=== PATIENT | male | born 1960 | race Caucasian/White ===

== ENCOUNTER → 2017-03-04 | Outpatient (CLI) | payer OTHER ==
[~2017-03-04] MED LIST: ACCUNEB 0.1.25 MG/1 INH; ALBUTEROL0.09 MG/A2 IH; ALBUTEROL0.09 MG/A2 INH; BLOOD PRESSURE; BUSPAR15 MG PO; BUSPIRONE HCL15 MG PO; CELEXA20 MG PO; CELEXA40 MG PO; CIPRO500 MG PO; CITALOPRAM HYDR40 MG PO; CORBAN MAGNESI400 MG PO; CORDROL20 MG PO; DELTASONE10 MG PO; DIFLUCAN100 MG; DIFLUCAN100 MG PO; FIORICET 325 MG1 TAB PO; FLONASE0.05 MG/AC NS; HYDR12.5C PO; HYDROCODONE BIT1 T11 PO; K-DUR 20MEQ20 MEQ PO; K-DUR20 MEQ PO; KEFLEX500 MG PO; LASIX20 MG PO; LASIX40 MG PO; LEVOFLOXACIN500 MG PO; LISINOPRIL20 MG PO; LORCET PO; MEDROL DOSEPAK4 MG PO; MOTRIN800 MG PO; MULTIPLE VITAMI1 CAP PO; OMEPRAZOLE40 MG PO; OMNICEF300 MG PO; PERCOCET 325 MG1 TA2 PO; PERCOGESIC PO; PHENERGAN W/DM120 ML PO; PREVACID30 MG PO; PRILOSEC20 MG PO; SEPTRA DS 800 M1 TAB PO; TRAZADONE HYDR100 MG PO; TRAZODONE HCL300 MG PO; TUSSI-ORGANIDI480 ML PO; ULTRAM50 MG PO; VIBRAMYCIN100 MG PO; VICODIN 5/500 505 MG PO; VICODIN 500 MG-1 TAB PO; VICODIN ES 7501 TA1 PO; VISTARIL50 MG PO; VITAMIN C500 MG PO; VITAMIN D50000 I1 PO; XANAX0.25 MG PO; XANAX1 MG PO; XANAX2 MG PO; ZITHROMAX Z PA250 MG PO; ZITHROMAX250 MG PO; ZOFRAN ODT8 MG PO; [UNRECOGNIZED DRUG - OTHER]
== END | disposition home or self-care (01) ==
LOC: RESCLI 02:19
DX: M25.511 Pain in right shoulder (principal); K21.9 Gastro-esophageal reflux disease without esophagitis; F32.9 Major depressive disorder, single episode, unspecified; J45.909 Unspecified asthma, uncomplicated; I10 Essential (primary) hypertension; Z88.6 Allergy status to analgesic agent

== ENCOUNTER 2019-08-18 10:07 | Inpatient (IN) | payer OTHER ==
[~2019-08-18] VITALS: Ht 175.2 cm; Wt 89.1 kg
[2019-08-18 10:35] VITALS: BP 138/73
[2019-08-18] MEDS ORDERED: SIMVASTATIN40 MG PO (10:36)
[2019-08-18] MEDS ORDERED: SUBOXONE 8 MG-1 EACH SL (10:37)
[2019-08-18] MEDS ORDERED: GABAPENTIN400 MG PO (10:37)
[2019-08-18] MEDS ORDERED: ZESTORETIC 10-1 EACH PO (10:38)
[2019-08-18] MEDS ORDERED: CETIRIZINE HYDR10 MG PO (10:38)
--- NOTE | 2019-08-18 10:39 | NUR ---
A 59, admitted to , under the services of ZEN Crvaen MD with a diagnosis of SOB, COPD, BRONCHITIS. Chief complaint is SOB, COUGH. Patient arrived via bed from [place]. Monitor applied. Initial assessment completed. Vital signs taken and recorded. ZEN CRAVEN MD notified of admission to the unit. Orders received. See assessment for past medical history, medications and allergies. Patient and/or family oriented to unit. [facility] policy reviewed. Clothing/patient valuable form completed. CHAD PASCUAL
[2019-08-18 10:58] LABS: BASO % 0.5 % (0.0-1.0); EOS # 0.2 10*3/uL (0.0-0.4); HEMATOCRIT 43.3 % (42.0-52.0); HEMOGLOBIN 14.1 g/dl (14.0-18.0); LYMPH # 2.4 10*3/uL (1.3-4.4); LYMPH % 40.3 % (27.0-41.0); MEAN CELL VOLUME 91.4 fl (80.0-94.0); MEAN CORPUSCULAR HGB 29.7 pg (27.0-31.0); MEAN CORPUSCULAR HGB CONC 32.6 g/dl (33.0-37.0); MEAN PLATELET VOLUME 9.4 fl (9.6-12.3); MONO # 0.4 10*3/uL (0.1-1.0); NEUT % 49.9 % (47.0-73.0); PLATELET COUNT AUTOMATED 176 10*3/uL (130-400); RED BLOOD COUNT 4.74 10*6/uL (4.50-5.90); RED CELL DISTRI WIDTH 12.5 % (0-14.5)
[2019-08-18 11:12] LABS: ALBUMIN 3.7 gm/dl (3.1-4.5); ALKALINE PHOSPHATASE 47 U/L (45-117); BUN 12 mg/dl (7-24); CHLORIDE 102 mmol/L (98-107); CREATININE 1.14 mg/dL (0.70-1.30); POTASSIUM 4.2 mmol/L (3.5-5.1); SGOT/AST 15 IU/L (3-35); SGPT/ALT 29 U/L (12-78); SODIUM 134 mmol/L (136-145); TOTAL PROTEIN 8.3 gm/dL (6.4-8.2)
[2019-08-18 12:00] VITALS: BP 110/62
[2019-08-18 16:00] VITALS: BP 115/63
[2019-08-18 20:00] VITALS: BP 119/74
[2019-08-19] VITALS: BP 102/66
[2019-08-19 06:31] LABS: BASO % 0.2 % (0.0-1.0); HEMATOCRIT 41.8 % (42.0-52.0); HEMOGLOBIN 13.6 g/dl (14.0-18.0); LYMPH % 21.3 % (27.0-41.0); MEAN CELL VOLUME 92.5 fl (80.0-94.0); MEAN CORPUSCULAR HGB 30.1 pg (27.0-31.0); MEAN CORPUSCULAR HGB CONC 32.5 g/dl (33.0-37.0); MEAN PLATELET VOLUME 9.9 fl (9.6-12.3); MONO # 0.1 10*3/uL (0.1-1.0); MONO % 1.8 % (3.0-9.0); NEUT # 3.5 10*3/uL (2.3-7.9); NEUT % 76.5 % (47.0-73.0); PLATELET COUNT AUTOMATED 166 10*3/uL (130-400); RED BLOOD COUNT 4.52 10*6/uL (4.50-5.90); RED CELL DISTRI WIDTH 12.5 % (0-14.5); WHITE BLOOD COUNT 4.6 10*3/uL (4.8-10.8)
[2019-08-19 06:56] LABS: BUN 14 mg/dl (7-24); CHLORIDE 103 mmol/L (98-107); CREATININE 1.28 mg/dL (0.70-1.30); PHOSPHOROUS 2.6 mg/dL (2.5-4.9); POTASSIUM 4.7 mmol/L (3.5-5.1); SODIUM 138 mmol/L (136-145)
--- NOTE | 2019-08-19 07:20 | NUR ---
ARRIVED ON SHIFT, INTRODUCED TO PATIENT, NO NEEDS VOICED, WHITE BOARD UPDATED.
[2019-08-19 08:00] VITALS: BP 124/80
--- NOTE | 2019-08-19 09:00 | NUR ---
Surgical Aides Teacher in to talk to patient. Patient states lives at home with his , brother, and children. There are 2 steps in the home. Physician: Dr. Abraham [facility]: [facility] Home health services: none Patient's level of ADLs: INDEPENDENT Patient has working utilities: yes DME: nebulizer Follow-up physician's appointment after d/c: he prefers to make his own follow up appt after discharge Does patient want to access PORTAL?: no Discharge plan discussed with patient. He lives at home with his , brother, and children. He is independent in his ADLs and ambulation. Discussed home health care services and he denies any home needs at this time. When medically stable he will be discharged to home. He states his brother or his will provide transportation on discharge. His only concern with discharge is having more medication prescribed for his nebulizer. Dr. Roche notified. WILL FERRARA
--- NOTE | 2019-08-19 09:42 | NUR ---
Shift chart check completed.
[2019-08-19 12:00] VITALS: BP 127/70
[2019-08-19 16:00] VITALS: BP 105/58
[2019-08-19 20:00] VITALS: BP 113/63
[2019-08-20] VITALS: BP 120/63
--- NOTE | 2019-08-20 02:33 | NUR ---
24 HR chart check completed.
--- NOTE | 2019-08-20 07:15 | NUR ---
ARRIVED ON SHIFT, INTRODUCED TO PATIENT, WHITE BOARD UPDATED, NO NEEDS VOICED AT THIS TIME.
--- NOTE | 2019-08-20 07:40 | NUR ---
Shift chart check completed.
[2019-08-20 08:00] VITALS: BP 127/78
--- NOTE | 2019-08-20 09:00 | NUR ---
Environmental Web Crawler in to see patient. No new needs or request at this time. He denies any home needs. When medically stable he will be discharged to home. Increased solumedrol, on rocephin, zithromax, and tamiflu.
[2019-08-20 12:00] VITALS: BP 125/69
[2019-08-20] MEDS ORDERED: PREDNISONE10 MG PO (13:28)
[2019-08-20] MEDS ORDERED: AVPAK AZITHROM250 M1 PO (13:28)
--- NOTE | 2019-08-20 13:50 | NUR ---
Discharge instructions reviewed with patient/family. Patient receptive and verbalizes understanding. Follow-up care arranged. Written instructions given to patient/family, IV REMOVED, NO TELEMETRY, PATIENT REFUSED WHEELCHAIR FOR DISCHARGE. DANAE WILSON
== END 2019-08-20 13:50 | disposition home or self-care (01) | DRG 140 ==
LOC: 4E 10:07
PROVIDERS: Internal Medicine; ADMIT Internal Medicine
DX: J44.0 Chronic obstructive pulmonary disease with (acute) lower respiratory infection (principal); J12.9 Viral pneumonia, unspecified; J44.1 Chronic obstructive pulmonary disease with (acute) exacerbation; E87.1 Hypo-osmolality and hyponatremia; I10 Essential (primary) hypertension; F32.9 Major depressive disorder, single episode, unspecified; F41.9 Anxiety disorder, unspecified; E87.5 Hyperkalemia; E78.5 Hyperlipidemia, unspecified; Z87.891 Personal history of nicotine dependence; Z82.49 Family history of ischemic heart disease and other diseases of the circulatory system; Z88.6 Allergy status to analgesic agent; Z88.0 Allergy status to penicillin; Z88.8 Allergy status to other drugs, medicaments and biological substances; Z79.899 Other long term (current) drug therapy

== ENCOUNTER → 2020-09-04 | Outpatient (CLI) | payer OTHER ==
[~2020-09-04] MED LIST changes: +AVPAK AZITHROM250 M1 PO; +CETIRIZINE HYDR10 MG PO; +GABAPENTIN400 MG PO; +PREDNISONE10 MG PO; +SIMVASTATIN40 MG PO; +SUBOXONE 8 MG-1 EACH SL; +ZESTORETIC 10-1 EACH PO
[2020-09-04 11:50] LABS: BASO % 0.6 % (0.0-1.0); EOS # 0.1 10*3/uL (0.0-0.4); EOS % 1.5 % (1.0-4.0); HEMATOCRIT 43.6 % (42.0-52.0); LYMPH # 2.1 10*3/uL (1.3-4.4); LYMPH % 39.7 % (27.0-41.0); MEAN CORPUSCULAR HGB CONC 31.9 g/dl (33.0-37.0); MEAN PLATELET VOLUME 9.7 fl (9.6-12.3); MONO # 0.3 10*3/uL (0.1-1.0); MONO % 6.3 % (3.0-9.0); NEUT # 2.8 10*3/uL (2.3-7.9); NEUT % 51.7 % (47.0-73.0); PLATELET COUNT AUTOMATED 161 10*3/uL (130-400); RED BLOOD COUNT 4.79 10*6/uL (4.50-5.90); RED CELL DISTRI WIDTH 12.6 % (0-14.5); WHITE BLOOD COUNT 5.4 10*3/uL (4.8-10.8)
[2020-09-04 12:08] LABS: ALBUMIN 3.6 gm/dl (3.1-4.5); BUN 7 mg/dl (7-24); CHLORIDE 102 mmol/L (98-107); CREATININE 1.07 mg/dL (0.70-1.30); POTASSIUM 4.1 mmol/L (3.5-5.1); SGOT/AST 50 IU/L (3-35); SGPT/ALT 90 U/L (12-78); SODIUM 135 mmol/L (136-145)
[2020-09-04 12:10] LABS: ALKALINE PHOSPHATASE 49 U/L (45-117); TOTAL PROTEIN 7.8 gm/dL (6.4-8.2)
[2020-09-05 05:06] LABS: HEP B CORE AB, IGM Negative (Negative); HEPATITIS B SURFACE AG Negative (Negative)
[2020-09-05 10:50] LABS: HEPATITIS C VIRUS ANTIBODY >11.0 s/co (0.0-0.9)
== END | disposition home or self-care (01) ==
LOC: LAB 11:30
PROVIDERS: ATTEND Nurse Practitioner Psychiatric/Mental Health
DX: Z13.0 Encounter for screening for diseases of the blood and blood-forming organs and certain disorders involving the immune mechanism (principal); F11.20 Opioid dependence, uncomplicated; Z57.8 Occupational exposure to other risk factors

== ENCOUNTER 2021-03-27 21:17 | Inpatient (IN) | payer OTHER ==
[~2021-03-27] VITALS: Ht 175.2 cm; Wt 84.1 kg
[~2021-03-27 21:17] MED LIST changes: +IBU800 MG PO
[2021-03-27 21:27] VITALS: BP 108/66
[2021-03-27 21:50] LABS: BASO % 0.2 % (0.0-1.0); EOS % 0.1 % (1.0-4.0); HEMATOCRIT 42.5 % (42.0-52.0); LYMPH # 1.2 10*3/uL (1.3-4.4); LYMPH % 12.2 % (27.0-41.0); MEAN CELL VOLUME 92.8 fl (80.0-94.0); MEAN CORPUSCULAR HGB 30.3 pg (27.0-31.0); MEAN CORPUSCULAR HGB CONC 32.7 g/dl (33.0-37.0); MEAN PLATELET VOLUME 9.9 fl (9.6-12.3); MONO # 0.6 10*3/uL (0.1-1.0); NEUT # 7.7 10*3/uL (2.3-7.9); NEUT % 81.1 % (47.0-73.0); PLATELET COUNT AUTOMATED 161 10*3/uL (130-400); RED BLOOD COUNT 4.58 10*6/uL (4.50-5.90); RED CELL DISTRI WIDTH 13.1 % (0-14.5); WHITE BLOOD COUNT 9.5 10*3/uL (4.8-10.8)
[2021-03-27 22:08] LABS: ALBUMIN 3.5 gm/dl (3.1-4.5); ALKALINE PHOSPHATASE 52 U/L (45-117); BUN 11 mg/dl (7-24); CHLORIDE 100 mmol/L (98-107); CREATININE 1.05 mg/dL (0.70-1.30); POTASSIUM 3.9 mmol/L (3.5-5.1); SGOT/AST 27 IU/L (3-35); SGPT/ALT 49 U/L (12-78); SODIUM 135 mmol/L (136-145); TOTAL PROTEIN 8.3 gm/dL (6.4-8.2); TROPONIN I < 0.015 ng/ml (<0.045)
[2021-03-28] MEDS ORDERED: MONTELUKAST SOD10 MG PO (00:28)
[2021-03-28] MEDS ORDERED: TAB-A-VITE TA400 MCG PO (00:30)
[2021-03-28] MEDS ORDERED: VITAMIN D350 MCG PO (00:31)
[2021-03-28 02:00] VITALS: BP 100/62
[2021-03-28] MEDS ORDERED: LOSARTAN-HCTZ1 EAC1 PO (02:48)
[2021-03-28 07:12] LABS: BASO % 0.1 % (0.0-1.0); HEMATOCRIT 41.5 % (42.0-52.0); LYMPH # 1.3 10*3/uL (1.3-4.4); LYMPH % 17.3 % (27.0-41.0); MEAN CELL VOLUME 94.7 fl (80.0-94.0); MEAN CORPUSCULAR HGB 30.4 pg (27.0-31.0); MEAN PLATELET VOLUME 10.2 fl (9.6-12.3); MONO # 0.1 10*3/uL (0.1-1.0); MONO % 1.7 % (3.0-9.0); NEUT # 6.2 10*3/uL (2.3-7.9); NEUT % 80.6 % (47.0-73.0); PLATELET COUNT AUTOMATED 142 10*3/uL (130-400); RED BLOOD COUNT 4.38 10*6/uL (4.50-5.90); RED CELL DISTRI WIDTH 13.1 % (0-14.5); WHITE BLOOD COUNT 7.7 10*3/uL (4.8-10.8)
[2021-03-28 07:41] LABS: ALKALINE PHOSPHATASE 49 U/L (45-117); BUN 15 mg/dl (7-24); CHLORIDE 102 mmol/L (98-107); CREATININE 1.16 mg/dL (0.70-1.30); FREE T4 1.23 ng/dl (0.76-1.46); POTASSIUM 4.7 mmol/L (3.5-5.1); SGOT/AST 20 IU/L (3-35); SGPT/ALT 42 U/L (12-78); SODIUM 136 mmol/L (136-145)
[2021-03-28 07:45] LABS: THYROID STIM HORMONE (HS) 0.291 uIU/ml (0.358-4.75)
[2021-03-28 08:00] VITALS: BP 100/68
[2021-03-28] MEDS ORDERED: LOSARTAN POTAS100 MG PO (10:30)
[2021-03-28 12:00] VITALS: BP 134/71
[2021-03-28 16:00] VITALS: BP 122/64
[2021-03-28 20:00] VITALS: BP 114/58
[2021-03-29] VITALS: BP 106/56
[2021-03-29 08:00] VITALS: BP 117/54
[2021-03-29 11:34] VITALS: BP 105/57
[2021-03-29 16:19] LABS: ABG BASE EXCESS 2.4 mmol/L (-2.0-2.0); ARTERIAL BLOOD GAS PH 7.397 (7.35-7.45); ARTERIAL BLOOD GAS PO2 79.9 (80-90)
[2021-03-29 20:00] VITALS: BP 116/72
[2021-03-30] VITALS: BP 114/64
[2021-03-30 06:44] LABS: BASO % 0.1 % (0.0-1.0); HEMATOCRIT 38.8 % (42.0-52.0); LYMPH # 1.5 10*3/uL (1.3-4.4); LYMPH % 15.1 % (27.0-41.0); MEAN CELL VOLUME 96.3 fl (80.0-94.0); MEAN CORPUSCULAR HGB 30.8 pg (27.0-31.0); MEAN PLATELET VOLUME 10.6 fl (9.6-12.3); MONO # 0.4 10*3/uL (0.1-1.0); NEUT # 7.9 10*3/uL (2.3-7.9); NEUT % 80.2 % (47.0-73.0); PLATELET COUNT AUTOMATED 161 10*3/uL (130-400); RED BLOOD COUNT 4.03 10*6/uL (4.50-5.90); RED CELL DISTRI WIDTH 13.1 % (0-14.5); WHITE BLOOD COUNT 9.8 10*3/uL (4.8-10.8)
[2021-03-30 07:03] LABS: ALBUMIN 2.6 gm/dl (3.1-4.5); ALKALINE PHOSPHATASE 51 U/L (45-117); BUN 14 mg/dl (7-24); CHLORIDE 104 mmol/L (98-107); CREATININE 0.89 mg/dL (0.70-1.30); POTASSIUM 4.2 mmol/L (3.5-5.1); SGOT/AST 15 IU/L (3-35); SGPT/ALT 31 U/L (12-78); SODIUM 139 mmol/L (136-145); TOTAL PROTEIN 6.9 gm/dL (6.4-8.2)
[2021-03-30 08:00] VITALS: BP 112/69
[2021-03-30 12:00] VITALS: BP 108/57
[2021-03-30 16:00] VITALS: BP 107/60
[2021-03-30 20:00] VITALS: BP 126/76
[2021-03-31] VITALS: BP 112/69
[2021-03-31 06:13] LABS: BASO % 0.1 % (0.0-1.0); EOS % 0.1 % (1.0-4.0); HEMATOCRIT 38.8 % (42.0-52.0); LYMPH # 1.5 10*3/uL (1.3-4.4); LYMPH % 20.7 % (27.0-41.0); MEAN CORPUSCULAR HGB 30.2 pg (27.0-31.0); MEAN CORPUSCULAR HGB CONC 31.4 g/dl (33.0-37.0); MEAN PLATELET VOLUME 10.4 fl (9.6-12.3); MONO # 0.3 10*3/uL (0.1-1.0); MONO % 4.3 % (3.0-9.0); NEUT # 5.3 10*3/uL (2.3-7.9); NEUT % 73.4 % (47.0-73.0); PLATELET COUNT AUTOMATED 166 10*3/uL (130-400); RED BLOOD COUNT 4.04 10*6/uL (4.50-5.90); WHITE BLOOD COUNT 7.3 10*3/uL (4.8-10.8)
[2021-03-31 06:44] LABS: ALBUMIN 2.8 gm/dl (3.1-4.5); BUN 13 mg/dl (7-24); CHLORIDE 103 mmol/L (98-107); POTASSIUM 4.8 mmol/L (3.5-5.1); SODIUM 138 mmol/L (136-145)
[2021-03-31 06:47] LABS: ALKALINE PHOSPHATASE 50 U/L (45-117); CREATININE 0.85 mg/dL (0.70-1.30); SGOT/AST 14 IU/L (3-35); SGPT/ALT 32 U/L (12-78); TOTAL PROTEIN 6.7 gm/dL (6.4-8.2)
[2021-03-31 08:00] VITALS: BP 116/66
[2021-03-31 12:00] VITALS: BP 121/56
[2021-03-31] MEDS ORDERED: DOXYCYCLINE100 M3 PO (14:42)
[2021-03-31] MEDS ORDERED: SYMB160 INH (14:42)
[2021-03-31] MEDS ORDERED: PREDNISONE10 MG PO (14:42)
== END 2021-03-31 14:27 | disposition left against medical advice (07) | DRG 720 ==
LOC: ED 21:17 → EDHOLD 22:47 → 4E 22:47
PROVIDERS: Internal Medicine; Physician Assistant; Podiatrist Foot & Ankle Surgery; Social Worker Clinical; ADMIT Internal Medicine; ATTEND Internal Medicine
DX: A41.9 Sepsis, unspecified organism (principal); D64.9 Anemia, unspecified; J96.01 Acute respiratory failure with hypoxia; F41.9 Anxiety disorder, unspecified; E78.5 Hyperlipidemia, unspecified; R55 Syncope and collapse; R73.9 Hyperglycemia, unspecified; I10 Essential (primary) hypertension; F32.9 Major depressive disorder, single episode, unspecified; E88.09 Other disorders of plasma-protein metabolism, not elsewhere classified; E07.81 Sick-euthyroid syndrome; E83.39 Other disorders of phosphorus metabolism; F25.9 Schizoaffective disorder, unspecified; Z20.822 Contact with and (suspected) exposure to COVID-19; J20.9 Acute bronchitis, unspecified; J43.9 Emphysema, unspecified; Z53.29 Procedure and treatment not carried out because of patient's decision for other reasons; K21.9 Gastro-esophageal reflux disease without esophagitis; R65.20 Severe sepsis without septic shock; Z88.0 Allergy status to penicillin; Z88.6 Allergy status to analgesic agent; Z88.8 Allergy status to other drugs, medicaments and biological substances; Z87.891 Personal history of nicotine dependence; Z83.3 Family history of diabetes mellitus; Z82.49 Family history of ischemic heart disease and other diseases of the circulatory system; Z80.8 Family history of malignant neoplasm of other organs or systems; Z79.899 Other long term (current) drug therapy; Z80.6 Family history of leukemia; E44.1 Mild protein-calorie malnutrition

== ENCOUNTER → 2024-05-19 | Outpatient (CLI) | payer OTHER ==
[~2024-05-19] MED LIST changes: +DOXYCYCLINE100 M3 PO; +FLUCONAZOLE100 MG PO; +LEVOFLOXACIN750 M2 PO; +LOSARTAN POTAS100 MG PO; +LOSARTAN-HCTZ1 EAC1 PO; +MONTELUKAST SOD10 MG PO; +SYMB160 INH; +TAB-A-VITE TA400 MCG PO; +VITAMIN D350 MCG PO
[2024-05-19 13:41] LABS: BASO % 0.2 % (0.0-1.0); EOS # 0.1 10*3/uL (0.0-0.4); EOS % 0.6 % (1.0-4.0); HEMATOCRIT 46.4 % (42.0-52.0); LYMPH # 2.1 10*3/uL (1.3-4.4); MEAN CELL VOLUME 91.2 fl (80.0-94.0); MEAN CORPUSCULAR HGB 28.9 pg (27.0-31.0); MEAN CORPUSCULAR HGB CONC 31.7 g/dl (33.0-37.0); MEAN PLATELET VOLUME 9.1 fl (9.6-12.3); MONO # 0.4 10*3/uL (0.1-1.0); NEUT # 6.3 10*3/uL (2.3-7.9); NEUT % 70.8 % (47.0-73.0); PLATELET COUNT AUTOMATED 160 10*3/uL (130-400); RED BLOOD COUNT 5.09 10*6/uL (4.50-5.90); RED CELL DISTRI WIDTH 13.7 % (0-14.5); WHITE BLOOD COUNT 8.9 10*3/uL (4.8-10.8)
[2024-05-19 13:53] LABS: BILIRUBIN Negative (Negative); BLOOD Negative (Negative); CLARITY Clear (Clear); COLOR Yellow (Yellow); GLUCOSE Negative (Negative); KETONE Negative (Negative); LEUKO ESTERASE Negative (Negative); NITRITE Negative (Negative); UROBILINOGEN 0.2 E.U./dl (0.0-1.0)
[2024-05-19 14:11] LABS: EPITHELIAL CELLS 0-2; WBC 0-2 wbc/hpf (0-5)
[2024-05-19 14:56] LABS: ALKALINE PHOSPHATASE 45 U/L (46-116); BUN 11 mg/dl (9-23); CHLORIDE 102 mmol/L (98-107); FREE T4 1.05 ng/dl (0.89-1.76); POTASSIUM 3.8 mmol/L (3.4-5.1); SGPT/ALT 12 U/L (5-49); TOTAL PROTEIN 7.1 gm/dL (6.0-8.0)
[2024-05-20 20:08] LABS: HCV RNA (INTERNATION UNIT) 16000000 IU/mL (.); HEPATITIS C QUANTITATION See Final Results IU/mL (.)
[2024-05-21 08:21] LABS: HCV LOG10 7.204 (.)
== END | disposition home or self-care (01) ==
LOC: LAB 13:19 → US 13:30
PROVIDERS: ATTEND Internal Medicine
DX: K76.0 Fatty (change of) liver, not elsewhere classified (principal); R53.83 Other fatigue; R73.9 Hyperglycemia, unspecified; B18.2 Chronic viral hepatitis C

== ENCOUNTER 2024-09-04 09:37 | Inpatient (IN) | payer OTHER ==
[~2024-09-04] VITALS: Ht 175.2 cm; Wt 77.1 kg
[2024-09-04] VITALS (10 sets, daily range): BP systolic 80–115; BP diastolic 53–72
[~2024-09-04 09:37] MED LIST changes: +HYDROXYZINE PAM25 M1 PO
[2024-09-04] MEDS ORDERED: methylPREDNISolone sod succ 125 MG VIAL IV ONE (09:40)
[2024-09-04] MEDS ORDERED: Albuterol Sulfate 2.5 MG/3 ML VIAL NEB ONE (09:40)
[2024-09-04] MEDS ORDERED: SODIUM CHLORIDE 0.9% 1,000 ML IV ONE ×5 (09:40→13:32)
[2024-09-04] MEDS ORDERED: MAGNESIUM SULFATE 50 ML IV ONE (09:40)
[2024-09-04] MEDS ORDERED: AZITHROMYCIN 250 MG TAB PO ONE (09:40)
[2024-09-04 09:51] LABS: BASO % 0.3 % (0.0-1.0); EOS # 0.1 10*3/uL (0.0-0.4); EOS % 0.9 % (1.0-4.0); HEMATOCRIT 46.6 % (42.0-52.0); MEAN CELL VOLUME 90.5 fl (80.0-94.0); MEAN CORPUSCULAR HGB 28.7 pg (27.0-31.0); MEAN CORPUSCULAR HGB CONC 31.8 g/dl (33.0-37.0); MEAN PLATELET VOLUME 9.3 fl (9.6-12.3); MONO # 0.6 10*3/uL (0.1-1.0); MONO % 8.8 % (3.0-9.0); NEUT # 4.5 10*3/uL (2.3-7.9); NEUT % 64.4 % (47.0-73.0); PLATELET COUNT AUTOMATED 183 10*3/uL (130-400); RED BLOOD COUNT 5.15 10*6/uL (4.50-5.90); RED CELL DISTRI WIDTH 13.6 % (0-14.5)
[2024-09-04 10:13] LABS: BUN 18 mg/dl (9-23); CHLORIDE 101 mmol/L (98-107); POTASSIUM 3.5 mmol/L (3.4-5.1)
[2024-09-04] MEDS ORDERED: Diltiazem Hydrochloride 100 ML IV ONE (10:15)
[2024-09-04] MEDS ORDERED: Metoprolol Tartrate 5 MG/5 ML VIAL IV ONE (11:05)
[2024-09-04] MEDS ORDERED: HEPARIN SODIUM 250 ML IV SCH (11:40)
[2024-09-04] MEDS ORDERED: ASPIRIN, CHEWABLE 81 MG TAB PO ONE (11:40)
[2024-09-04 13:59] LABS: BILIRUBIN Negative (Negative); BLOOD Negative (Negative); CLARITY Clear (Clear); COLOR Yellow (Yellow); GLUCOSE Negative (Negative); KETONE Negative (Negative); LEUKO ESTERASE Negative (Negative); NITRITE Negative (Negative); SPECIFIC GRAVITY 1.015 (1.001-1.030); UROBILINOGEN 0.2 E.U./dl (0.0-1.0)
[2024-09-04 14:07] LABS: BACTERIA 1+; WBC 0-2 wbc/hpf (0-5)
[2024-09-04] MEDS ORDERED: Albuterol Sulf/Ipratropium 3 ML VIAL NEB SCH (15:15)
[2024-09-04] MEDS ORDERED: Doxycycline Hyclate 100 MG in SODIUM CHLORIDE 0.9% 250 ML IV SCH (16:00)
[2024-09-04 16:34] LABS: ABG O2 SATURATION 96.7 % (94.0-98.0); ARTERIAL BLOOD GAS PH 7.285 (7.350-7.450); ARTERIAL BLOOD GAS PO2 97.9 mmHg (83.0-108.0)
[2024-09-04 16:35] LABS: ABG BASE EXCESS -5.7 mmol/L (-2.0-3.0)
[2024-09-04] MEDS ORDERED: LORATADINE-D 11 EACH PO (16:54)
[2024-09-04] MEDS ORDERED: PREDNISONE10 MG PO (16:55)
[2024-09-04] MEDS ORDERED: Ceftriaxone Sodium 1 GM in SYRINGE INFUSION 10 ML IV SCH (17:00)
[2024-09-04] MEDS ORDERED: NALOXONE HCL4 M1 INH (17:03)
[2024-09-04] MEDS ORDERED: VENTOLIN 02.5 MG/3 M INH (17:04)
[2024-09-04] MEDS ORDERED: Loratadine/Pseudoephedrine S 1 TAB TAB PO PRN (17:20)
[2024-09-04] MEDS ORDERED: IBUPROFEN 800 MG TAB PO PRN (17:20)
[2024-09-04] MEDS ORDERED: BUPRENORPHINE HCL/NALOXONE 8 MG-2 MG SL TABLET SL SCH (18:00)
[2024-09-04] MEDS ORDERED: SIMVASTATIN 20 MG TAB PO SCH (22:00)
[2024-09-04] MEDS ORDERED: methylPREDNISolone sod succ 125 MG VIAL IV SCH (22:00)
[2024-09-04] MEDS ORDERED: GABAPENTIN 800 MG TAB PO SCH (22:00)
[2024-09-04] MEDS ORDERED: methylPREDNISolone sod succ 40 MG VIAL IV SCH (22:00)
[2024-09-05] VITALS: BP 130/59; BP 97/71
[2024-09-05] MEDS ORDERED: OMEPRAZOLE 20 MG CAP PO SCH (06:00)
[2024-09-05 08:00] VITALS: BP 128/73
[2024-09-05] MEDS ORDERED: Montelukast Sodium 10 MG TAB PO SCH (10:00)
[2024-09-05] MEDS ORDERED: Cholecalciferol 2,000 UNIT TABLET (50 MCG) PO SCH (10:00)
[2024-09-05] MEDS ORDERED: CITALOPRAM 20 MG TAB PO SCH (10:00)
[2024-09-05 12:00] VITALS: BP 127/81
[2024-09-05 13:32] LABS: BASO % 0.1 % (0.0-1.0); MEAN CELL VOLUME 92.4 fl (80.0-94.0); MEAN CORPUSCULAR HGB 28.9 pg (27.0-31.0); MEAN CORPUSCULAR HGB CONC 31.3 g/dl (33.0-37.0); MEAN PLATELET VOLUME 9.4 fl (9.6-12.3); MONO # 0.2 10*3/uL (0.1-1.0); MONO % 2.6 % (3.0-9.0); NEUT # 6.6 10*3/uL (2.3-7.9); NEUT % 87.4 % (47.0-73.0); PLATELET COUNT AUTOMATED 153 10*3/uL (130-400); RED BLOOD COUNT 4.33 10*6/uL (4.50-5.90); RED CELL DISTRI WIDTH 13.5 % (0-14.5); WHITE BLOOD COUNT 7.6 10*3/uL (4.8-10.8)
[2024-09-05 13:53] LABS: ALKALINE PHOSPHATASE 44 U/L (46-116); BUN 13 mg/dl (9-23); CHLORIDE 101 mmol/L (98-107); SGPT/ALT 14 U/L (5-49); TOTAL PROTEIN 6.6 gm/dL (6.0-8.0)
[2024-09-05 16:00] VITALS: BP 102/65
[2024-09-05 20:00] VITALS: BP 111/68
[2024-09-06] VITALS (7 sets, daily range): BP systolic 115–142; BP diastolic 57–94
[2024-09-06] MEDS ORDERED: Diltiazem Hydrochloride 100 ML IV SCH (10:30)
[2024-09-07] VITALS: BP 143/80
[2024-09-07] MEDS ORDERED: FAMOTIDINE 10 MG TAB PO ONE (03:20)
[2024-09-07 08:15] VITALS: BP 143/85
[2024-09-07 12:03] VITALS: BP 140/80
[2024-09-07 16:00] VITALS: BP 152/76
[2024-09-07 20:00] VITALS: BP 132/50; BP 154/91
[2024-09-08] VITALS (15 sets, daily range): BP systolic 116–163; BP diastolic 21–103
[2024-09-08] MEDS ORDERED: Diltiazem Hydrochloride 25 MG/5 ML VIAL IV ONE ×2 (03:55→04:20)
[2024-09-08] MEDS ORDERED: Diltiazem Hydrochloride 5 ML IV ONE (05:05)
[2024-09-08] MEDS ORDERED: RIVAROXABAN 20 MG TAB PO SCH (10:00)
[2024-09-08] MEDS ORDERED: methylPREDNISolone sod succ 40 MG VIAL IV SCH (14:00)
[2024-09-08] MEDS ORDERED: DEXMEDETOMIDINE IN 0.9 % NACL 100 ML IV SCH (15:55)
[2024-09-08 16:24] LABS: ABG O2 SATURATION 95.2 % (94.0-98.0); ARTERIAL BLOOD GAS PH 7.366 (7.350-7.450); ARTERIAL BLOOD GAS PO2 75.9 mmHg (83.0-108.0)
[2024-09-08 16:25] LABS: ABG BASE EXCESS 5.4 mmol/L (-2.0-3.0)
[2024-09-08] MEDS ORDERED: DIGOXIN 500 MCG/2 ML AMP IV ONE ×2 (16:25→22:00)
[2024-09-09] VITALS (12 sets, daily range): BP systolic 101–165; BP diastolic 69–97
[2024-09-09 05:27] LABS: BUN 19 mg/dl (9-23); CHLORIDE 99 mmol/L (98-107); POTASSIUM 4.4 mmol/L (3.4-5.1)
[2024-09-09 06:16] LABS: HEMATOCRIT 40.9 % (42.0-52.0); MEAN CELL VOLUME 94.5 fl (80.0-94.0); MEAN CORPUSCULAR HGB 28.9 pg (27.0-31.0); MEAN CORPUSCULAR HGB CONC 30.6 g/dl (33.0-37.0); MONO # 0.1 10*3/uL (0.1-1.0); MONO % 1.7 % (3.0-9.0); NEUT # 5.9 10*3/uL (2.3-7.9); NEUT % 86.1 % (47.0-73.0); PLATELET COUNT AUTOMATED 170 10*3/uL (130-400); RED BLOOD COUNT 4.33 10*6/uL (4.50-5.90); RED CELL DISTRI WIDTH 13.4 % (0-14.5); WHITE BLOOD COUNT 6.9 10*3/uL (4.8-10.8)
[2024-09-09] MEDS ORDERED: Lidocaine Hydrochloride 4% 5 ML AMP NEB ONE (09:05)
[2024-09-09] MEDS ORDERED: Albuterol Sulfate 2.5 MG/0.5 ML VIAL NEB ONE ×2 (09:05→09:33)
[2024-09-09] MEDS ORDERED: Lidocaine Hydrochloride 4% 5 ML AMP ONE (09:33)
[2024-09-09] MEDS ORDERED: Albuterol Sulf/Ipratropium 3 ML VIAL NEB ONE (09:45)
[2024-09-09] MEDS ORDERED: PROPOFOL 200 MG/20 ML VIAL IV ONE (12:58)
[2024-09-09] MEDS ORDERED: DIGOXIN 125 MCG TAB PO SCH (14:00)
[2024-09-09] MEDS ORDERED: DILTIAZEM CD 120 MG CAP PO SCH (15:45)
[2024-09-10] VITALS (10 sets, daily range): BP systolic 107–134; BP diastolic 59–86
[2024-09-10 09:06] LABS: ACID FAST SPEC PROCESSING Concentration (.)
[2024-09-11] VITALS (8 sets, daily range): BP systolic 103–159; BP diastolic 68–90
[2024-09-11 05:45] LABS: BUN 22 mg/dl (9-23); CHLORIDE 97 mmol/L (98-107); POTASSIUM 4.3 mmol/L (3.4-5.1)
[2024-09-11 06:29] LABS: HEMATOCRIT 44.1 % (42.0-52.0); MEAN CELL VOLUME 95.9 fl (80.0-94.0); MEAN CORPUSCULAR HGB 28.9 pg (27.0-31.0); MEAN CORPUSCULAR HGB CONC 30.2 g/dl (33.0-37.0); MEAN PLATELET VOLUME 9.6 fl (9.6-12.3); PLATELET COUNT AUTOMATED 201 10*3/uL (130-400); RED CELL DISTRI WIDTH 13.7 % (0-14.5); WHITE BLOOD COUNT 8.3 10*3/uL (4.8-10.8)
[2024-09-11 06:37] LABS: MANUAL DIFF REFLEX YES
[2024-09-11 07:22] LABS: PLATELET SUFFICIENCY NORMAL (NORMAL); POLYCHROMASIA SLIGHT; TOTAL CELLS COUNTED 100 #CELLS
[2024-09-11 07:23] LABS: BURR CELLS FEW
[2024-09-11] MEDS ORDERED: GUAIFENESIN 600 MG TAB ER PO SCH (10:00)
[2024-09-11] MEDS ORDERED: Diltiazem Hydrochloride 25 MG/5 ML VIAL IV ONE (17:30)
[2024-09-11] MEDS ORDERED: methylPREDNISolone sod succ 40 MG VIAL IV SCH (22:00)
[2024-09-12] VITALS: BP 157/96
[2024-09-12 04:27] VITALS: BP 148/94
[2024-09-12] MEDS ORDERED: Diltiazem Hydrochloride 25 MG/5 ML VIAL IV ONE (06:55)
[2024-09-12 08:00] VITALS: BP 155/83
[2024-09-12 10:52] LABS: BUN 15 mg/dl (9-23); CHLORIDE 99 mmol/L (98-107); POTASSIUM 4.4 mmol/L (3.4-5.1)
[2024-09-12] MEDS ORDERED: BUPRENORPHINE HCL/NALOXONE 8 MG-2 MG SL TABLET SL SCH (11:15)
[2024-09-12 11:58] VITALS: BP 151/80
[2024-09-12] MEDS ORDERED: Vancomycin Hydrochloride 1,000 MG VIAL IV SCH (15:15)
[2024-09-12 16:00] VITALS: BP 150/87
[2024-09-12] MEDS ORDERED: VANCOMYCIN/WATER FOR INJ (PEG) 300 ML IV SCH (16:00)
[2024-09-12] MEDS ORDERED: LORazepam 1 MG TAB PO ONE (16:55)
[2024-09-12 20:00] VITALS: BP 156/84
[2024-09-12] MEDS ORDERED: LORazepam 0.5 MG TAB PO SCH (22:00)
[2024-09-13] VITALS: BP 140/92
[2024-09-13] MEDS ORDERED: Diltiazem Hydrochloride 25 MG/5 ML VIAL IV ONE (00:20)
[2024-09-13 06:37] LABS: BASO % 0.2 % (0.0-1.0); HEMATOCRIT 42.4 % (42.0-52.0); MEAN CELL VOLUME 95.3 fl (80.0-94.0); MEAN CORPUSCULAR HGB CONC 30.4 g/dl (33.0-37.0); MEAN PLATELET VOLUME 9.6 fl (9.6-12.3); MONO # 0.4 10*3/uL (0.1-1.0); MONO % 3.4 % (3.0-9.0); NEUT # 9.4 10*3/uL (2.3-7.9); NEUT % 86.5 % (47.0-73.0); PLATELET COUNT AUTOMATED 181 10*3/uL (130-400); RED BLOOD COUNT 4.45 10*6/uL (4.50-5.90); RED CELL DISTRI WIDTH 13.6 % (0-14.5); WHITE BLOOD COUNT 10.9 10*3/uL (4.8-10.8)
[2024-09-13 08:00] VITALS: BP 115/91
[2024-09-13] MEDS ORDERED: HYDROCHLOROTHIAZIDE 25 MG TAB PO SCH (10:00)
[2024-09-13] MEDS ORDERED: Losartan Potassium 100 MG TABLET PO SCH (10:00)
[2024-09-13] MEDS ORDERED: DILTIAZEM CD 180 MG CAP PO SCH (10:00)
[2024-09-13] MEDS ORDERED: CARDIZEM CD300 MG PO (12:41)
[2024-09-13] MEDS ORDERED: VIBRA-TAB100 MG PO (12:41)
[2024-09-14] MEDS ORDERED: LIPITOR80 MG PO (15:48)
[2024-09-15] MEDS ORDERED: XARELTO20 M1 PO (21:02)
[2024-09-15] MEDS ORDERED: CARDIZEM LA360 MG PO (21:04)
== END 2024-09-13 09:30 | disposition left against medical advice (07) | DRG 145 ==
LOC: ED 09:37 → EDHOLD 11:46 → 4E 11:46 → ICCU 11:46 → 4E 15:36 → ICCU 09-08 15:53
PROVIDERS: Emergency Medicine; Internal Medicine Critical Care Medicine; ADMIT Internal Medicine; ATTEND Internal Medicine
PROC: 0BC98ZZ Extirpation of Matter from Lingula Bronchus, Via Natural or Artificial Opening Endoscopic (ICD-10-PCS; principal; 2024-09-09)
PROC: 0BC48ZZ Extirpation of Matter from Right Upper Lobe Bronchus, Via Natural or Artificial Opening Endoscopic (ICD-10-PCS; 2024-09-09)
PROC: 0BC88ZZ Extirpation of Matter from Left Upper Lobe Bronchus, Via Natural or Artificial Opening Endoscopic (ICD-10-PCS; 2024-09-09)
PROC: 0BC58ZZ Extirpation of Matter from Right Middle Lobe Bronchus, Via Natural or Artificial Opening Endoscopic (ICD-10-PCS; 2024-09-09)
PROC: 0BC38ZZ Extirpation of Matter from Right Main Bronchus, Via Natural or Artificial Opening Endoscopic (ICD-10-PCS; 2024-09-09)
PROC: 0BC78ZZ Extirpation of Matter from Left Main Bronchus, Via Natural or Artificial Opening Endoscopic (ICD-10-PCS; 2024-09-09)
PROC: 0BC68ZZ Extirpation of Matter from Right Lower Lobe Bronchus, Via Natural or Artificial Opening Endoscopic (ICD-10-PCS; 2024-09-09)
PROC: 0BCB8ZZ Extirpation of Matter from Left Lower Lobe Bronchus, Via Natural or Artificial Opening Endoscopic (ICD-10-PCS; 2024-09-09)
PROC: 0BC28ZZ Extirpation of Matter from Carina, Via Natural or Artificial Opening Endoscopic (ICD-10-PCS; 2024-09-09)
PROC: 5A09357 Assistance with Respiratory Ventilation, Less than 24 Consecutive Hours, Continuous Positive Airway Pressure (ICD-10-PCS; 2024-09-09)
PROC: 0BC18ZZ Extirpation of Matter from Trachea, Via Natural or Artificial Opening Endoscopic (ICD-10-PCS; 2024-09-09)
PROC: 5A09357 Assistance with Respiratory Ventilation, Less than 24 Consecutive Hours, Continuous Positive Airway Pressure (ICD-10-PCS; 2024-09-10)
DX: J20.9 Acute bronchitis, unspecified (principal); J96.21 Acute and chronic respiratory failure with hypoxia; J96.22 Acute and chronic respiratory failure with hypercapnia; T17.590A Other foreign object in bronchus causing asphyxiation, initial encounter; J44.1 Chronic obstructive pulmonary disease with (acute) exacerbation; J44.0 Chronic obstructive pulmonary disease with (acute) lower respiratory infection; I48.0 Paroxysmal atrial fibrillation; F32.9 Major depressive disorder, single episode, unspecified; E78.5 Hyperlipidemia, unspecified; I10 Essential (primary) hypertension; E55.9 Vitamin D deficiency, unspecified; F19.11 Other psychoactive substance abuse, in remission; F41.9 Anxiety disorder, unspecified; B95.62 Methicillin resistant Staphylococcus aureus infection as the cause of diseases classified elsewhere; Z53.29 Procedure and treatment not carried out because of patient's decision for other reasons; Z87.891 Personal history of nicotine dependence; W44.F9XA Other object of natural or organic material, entering into or through a natural orifice, initial encounter; Y93.89 Activity, other specified; Y92.89 Other specified places as the place of occurrence of the external cause; Y99.8 Other external cause status; Z88.0 Allergy status to penicillin; Z88.8 Allergy status to other drugs, medicaments and biological substances; Z82.49 Family history of ischemic heart disease and other diseases of the circulatory system; Z79.51 Long term (current) use of inhaled steroids; Z79.899 Other long term (current) drug therapy

== ENCOUNTER 2024-11-24 16:03 | Inpatient (IN) | payer OTHER ==
[~2024-11-24] VITALS: Ht 175.2 cm; Wt 75.6 kg
[~2024-11-24 16:03] MED LIST changes: +CARDIZEM CD300 MG PO; +CARDIZEM LA360 MG PO; +LIPITOR80 MG PO; +LORATADINE-D 11 EACH PO; +NALOXONE HCL4 M1 INH; +SEPTDS PO; +VENTOLIN 02.5 MG/3 M INH; +VIBRA-TAB100 MG PO; +XARELTO20 M1 PO
[2024-11-24 16:13] VITALS: BP 113/74
[2024-11-24] MEDS ORDERED: Dexamethasone Sodium Phospha 20 MG/5 ML VIAL IV ONE (16:15)
[2024-11-24] MEDS ORDERED: MAGNESIUM SULFATE 50 ML IV ONE (16:15)
[2024-11-24] MEDS ORDERED: Albuterol Sulf/Ipratropium 3 ML VIAL NEB SCH ×2 (16:15→20:30)
[2024-11-24 16:39] LABS: BASO % 0.3 % (0.0-1.0); EOS # 0.1 10*3/uL (0.0-0.4); HEMATOCRIT 42.3 % (42.0-52.0); MEAN CELL VOLUME 89.6 fl (80.0-94.0); MEAN CORPUSCULAR HGB 29.2 pg (27.0-31.0); MEAN CORPUSCULAR HGB CONC 32.6 g/dl (33.0-37.0); MEAN PLATELET VOLUME 9.1 fl (9.6-12.3); MONO # 0.1 10*3/uL (0.1-1.0); MONO % 1.9 % (3.0-9.0); NEUT # 4.6 10*3/uL (2.3-7.9); NEUT % 79.8 % (47.0-73.0); PLATELET COUNT AUTOMATED 149 10*3/uL (130-400); RED BLOOD COUNT 4.72 10*6/uL (4.50-5.90); RED CELL DISTRI WIDTH 13.2 % (0-14.5); WHITE BLOOD COUNT 5.7 10*3/uL (4.8-10.8)
[2024-11-24 16:54] LABS: ACT PARTIAL THROMBO TIME 23.6 SECONDS (20.0-32.1)
[2024-11-24 17:01] LABS: ALKALINE PHOSPHATASE 40 U/L (46-116); BUN 12 mg/dl (9-23); CHLORIDE 99 mmol/L (98-107); LIPASE 32 U/L (12-53); SGPT/ALT 15 U/L (5-49)
[2024-11-24 17:27] LABS: ABG BASE EXCESS -0.1 mmol/L (-2.0-3.0); ABG O2 SATURATION 98.8 % (94.0-98.0); ARTERIAL BLOOD GAS PH 7.389 (7.350-7.450); ARTERIAL BLOOD GAS PO2 161.3 mmHg (83.0-108.0)
[2024-11-24] MEDS ORDERED: SODIUM CHLORIDE 0.9% 100 ML BAG IV ONE (18:00)
[2024-11-24] MEDS ORDERED: IOHEXOL 350 MG/ML 100 ML VIAL IV ONE ×2 (18:00→18:21)
[2024-11-24] MEDS ORDERED: SODIUM CHLORIDE 0.9% 100 ML IV ONE (18:21)
[2024-11-24] MEDS ORDERED: SIMVASTATIN40 MG PO (19:30)
[2024-11-24 19:53] VITALS: BP 97/55
[2024-11-24] MEDS ORDERED: cefTRIAXone Sodium 10 ML IV SCH (21:00)
[2024-11-24] MEDS ORDERED: SODIUM CHLORIDE 0.9% 1,000 ML IV ONE (21:20)
[2024-11-24] MEDS ORDERED: Doxycycline Hyclate 100 MG in SODIUM CHLORIDE 0.9% 250 ML IV SCH (22:00)
[2024-11-24] MEDS ORDERED: BUPRENORPHINE HCL/NALOXONE 8 MG-2 MG SL TABLET SL SCH (22:00)
[2024-11-24] MEDS ORDERED: GABAPENTIN 800 MG TAB PO SCH (22:00)
[2024-11-24 23:14] VITALS: BP 98/57
[2024-11-25 01:09] VITALS: BP 105/65
[2024-11-25 01:27] LABS: BILIRUBIN Negative (Negative); BLOOD Negative (Negative); CLARITY Clear (Clear); COLOR Yellow (Yellow); GLUCOSE Negative (Negative); KETONE Negative (Negative); LEUKO ESTERASE Negative (Negative); NITRITE Negative (Negative); UROBILINOGEN 0.2 E.U./dl (0.0-1.0)
[2024-11-25 01:59] LABS: RBC 0-2 rbc/hpf (0-2); WBC 0-2 wbc/hpf (0-5)
[2024-11-25 02:15] VITALS: BP 106/61
[2024-11-25] MEDS ORDERED: Pantoprazole Sodium 20 MG TAB PO SCH (06:00)
[2024-11-25] MEDS ORDERED: methylPREDNISolone sod succ 40 MG VIAL IV SCH (06:00)
[2024-11-25 06:16] LABS: BASO % 0.1 % (0.0-1.0); HEMATOCRIT 40.7 % (42.0-52.0); MEAN CELL VOLUME 88.7 fl (80.0-94.0); MEAN CORPUSCULAR HGB 28.5 pg (27.0-31.0); MEAN CORPUSCULAR HGB CONC 32.2 g/dl (33.0-37.0); MEAN PLATELET VOLUME 10.1 fl (9.6-12.3); MONO # 0.3 10*3/uL (0.1-1.0); MONO % 3.7 % (3.0-9.0); NEUT # 6.5 10*3/uL (2.3-7.9); NEUT % 78.3 % (47.0-73.0); PLATELET COUNT AUTOMATED 158 10*3/uL (130-400); RED BLOOD COUNT 4.59 10*6/uL (4.50-5.90); RED CELL DISTRI WIDTH 13.1 % (0-14.5); WHITE BLOOD COUNT 8.3 10*3/uL (4.8-10.8)
[2024-11-25 06:32] LABS: ALKALINE PHOSPHATASE 35 U/L (46-116); BUN 12 mg/dl (9-23); CHLORIDE 102 mmol/L (98-107); POTASSIUM 4.2 mmol/L (3.4-5.1); SGPT/ALT 12 U/L (5-49); TOTAL PROTEIN 6.6 gm/dL (6.0-8.0)
[2024-11-25 08:00] VITALS: BP 104/77
[2024-11-25] MEDS ORDERED: CITALOPRAM 20 MG TAB PO SCH (10:00)
[2024-11-25] MEDS ORDERED: Losartan Potassium 50 MG TAB PO SCH (10:00)
[2024-11-25] MEDS ORDERED: Montelukast Sodium 10 MG TAB PO SCH (10:00)
[2024-11-25] MEDS ORDERED: ACETAMINOPHEN 325 MG TAB PO PRN (10:15)
[2024-11-25 12:00] VITALS: BP 104/91
[2024-11-25 15:25] VITALS: BP 118/69
[2024-11-25 20:00] VITALS: BP 104/55
[2024-11-26] VITALS: BP 102/44
[2024-11-26 08:00] VITALS: BP 134/78
[2024-11-26 12:00] VITALS: BP 153/63
[2024-11-26 16:00] VITALS: BP 148/60
[2024-11-26 20:00] VITALS: BP 112/70
[2024-11-26] MEDS ORDERED: GUAIFENESIN 600 MG TAB ER PO SCH (22:00)
[2024-11-27] VITALS: BP 110/71
[2024-11-27] MEDS ORDERED: Water, Sterile 10 ML VIAL ONE (05:40)
[2024-11-27 08:00] VITALS: BP 130/60
[2024-11-27 12:00] VITALS: BP 112/73
[2024-11-27] MEDS ORDERED: dilTIAZem Hydrochloride 25 MG/5 ML VIAL IV ONE ×2 (12:30→13:30)
[2024-11-27] MEDS ORDERED: dilTIAZem CD 240 MG CAP PO SCH (12:43)
[2024-11-27] MEDS ORDERED: CARDIZEM CD360 MG PO (12:47)
[2024-11-27] MEDS ORDERED: XARE20MG PO (12:47)
[2024-11-27] MEDS ORDERED: dilTIAZem Hydrochloride 100 ML IV SCH (14:00)
[2024-11-27 14:15] LABS: BASO % 0.1 % (0.0-1.0); HEMATOCRIT 37.8 % (42.0-52.0); MEAN CELL VOLUME 93.6 fl (80.0-94.0); MEAN PLATELET VOLUME 9.7 fl (9.6-12.3); MONO # 0.4 10*3/uL (0.1-1.0); MONO % 5.3 % (3.0-9.0); NEUT # 6.1 10*3/uL (2.3-7.9); NEUT % 80.1 % (47.0-73.0); PLATELET COUNT AUTOMATED 156 10*3/uL (130-400); RED BLOOD COUNT 4.04 10*6/uL (4.50-5.90); RED CELL DISTRI WIDTH 13.7 % (0-14.5); WHITE BLOOD COUNT 7.7 10*3/uL (4.8-10.8)
[2024-11-27 14:48] LABS: ALKALINE PHOSPHATASE 38 U/L (46-116); BUN 10 mg/dl (9-23); CHLORIDE 106 mmol/L (98-107); POTASSIUM 4.1 mmol/L (3.4-5.1); SGPT/ALT 10 U/L (5-49); TOTAL PROTEIN 6.2 gm/dL (6.0-8.0)
[2024-11-27 16:00] VITALS: BP 103/56
[2024-11-27 20:00] VITALS: BP 112/69
[2024-11-27] MEDS ORDERED: Enoxaparin Sodium 80 MG/0.8 ML SYR SC SCH (22:00)
[2024-11-28] VITALS: BP 106/66
[2024-11-28 05:12] LABS: ALKALINE PHOSPHATASE 37 U/L (46-116); BUN 14 mg/dl (9-23); CHLORIDE 103 mmol/L (98-107); POTASSIUM 4.1 mmol/L (3.4-5.1); SGPT/ALT 12 U/L (5-49); TOTAL PROTEIN 6.6 gm/dL (6.0-8.0)
[2024-11-28 06:17] LABS: BASO % 0.1 % (0.0-1.0); HEMATOCRIT 38.3 % (42.0-52.0); MEAN CELL VOLUME 93.6 fl (80.0-94.0); MEAN CORPUSCULAR HGB 29.1 pg (27.0-31.0); MEAN CORPUSCULAR HGB CONC 31.1 g/dl (33.0-37.0); MONO # 0.4 10*3/uL (0.1-1.0); MONO % 4.7 % (3.0-9.0); NEUT # 6.6 10*3/uL (2.3-7.9); NEUT % 77.9 % (47.0-73.0); PLATELET COUNT AUTOMATED 178 10*3/uL (130-400); RED BLOOD COUNT 4.09 10*6/uL (4.50-5.90); WHITE BLOOD COUNT 8.5 10*3/uL (4.8-10.8)
[2024-11-28 08:00] VITALS: BP 121/72
[2024-11-28] MEDS ORDERED: FUROSEMIDE 40 MG/4 ML VIAL IV SCH (10:00)
[2024-11-28 12:00] VITALS: BP 126/72
[2024-11-28 16:00] VITALS: BP 117/70
[2024-11-28 20:13] VITALS: BP 124/71
[2024-11-29] VITALS: BP 133/70
[2024-11-29] MEDS ORDERED: Lidocaine Hydrochloride 4% 5 ML AMP NEB ONE (06:40)
[2024-11-29] MEDS ORDERED: Albuterol Sulfate 2.5 MG/0.5 ML VIAL NEB ONE ×3 (06:40→08:23)
[2024-11-29 07:00] VITALS: BP 120/74
[2024-11-29] MEDS ORDERED: Lactated Ringer's Solution 500 ML IV ONE (07:07)
[2024-11-29] MEDS ORDERED: Lidocaine Hydrochloride 4% 5 ML AMP ONE ×2 (07:18→08:23)
[2024-11-29] MEDS ORDERED: Albuterol Sulf/Ipratropium 3 ML VIAL NEB ONE ×2 (07:55→08:25)
[2024-11-29 07:58] VITALS: BP 129/71
[2024-11-29 08:13] VITALS: BP 121/73
[2024-11-29 08:28] VITALS: BP 116/70
[2024-11-29 09:40] VITALS: BP 123/70
[2024-11-29] MEDS ORDERED: DOXYCYCLINE HY100 M3 PO (11:50)
[2024-11-29] MEDS ORDERED: CEFUROXIME AXE500 MG PO (12:43)
[2024-11-29] MEDS ORDERED: PROPOFOL 200 MG/20 ML VIAL IV ONE (13:41)
[2024-11-29] MEDS ORDERED: Lidocaine Hydrochloride 2% 5 ML SDV IV ONE (13:41)
[2024-11-30 10:07] LABS: ACID FAST SPEC PROCESSING Concentration (.)
== END 2024-11-29 12:00 | disposition home or self-care (01) | DRG 720 ==
LOC: ED 16:03 → 4E 17:57 → EDHOLD 17:57 → 4E 11-25 00:58
PROVIDERS: Emergency Medicine; Internal Medicine Critical Care Medicine; ADMIT Internal Medicine; ATTEND Internal Medicine
PROC: 0BC98ZZ Extirpation of Matter from Lingula Bronchus, Via Natural or Artificial Opening Endoscopic (ICD-10-PCS; principal; 2024-11-29)
PROC: 0BC48ZZ Extirpation of Matter from Right Upper Lobe Bronchus, Via Natural or Artificial Opening Endoscopic (ICD-10-PCS; 2024-11-29)
PROC: 0BC88ZZ Extirpation of Matter from Left Upper Lobe Bronchus, Via Natural or Artificial Opening Endoscopic (ICD-10-PCS; 2024-11-29)
PROC: 0BC58ZZ Extirpation of Matter from Right Middle Lobe Bronchus, Via Natural or Artificial Opening Endoscopic (ICD-10-PCS; 2024-11-29)
PROC: 0BC38ZZ Extirpation of Matter from Right Main Bronchus, Via Natural or Artificial Opening Endoscopic (ICD-10-PCS; 2024-11-29)
PROC: 0BC78ZZ Extirpation of Matter from Left Main Bronchus, Via Natural or Artificial Opening Endoscopic (ICD-10-PCS; 2024-11-29)
PROC: 0BC68ZZ Extirpation of Matter from Right Lower Lobe Bronchus, Via Natural or Artificial Opening Endoscopic (ICD-10-PCS; 2024-11-29)
PROC: 0BCB8ZZ Extirpation of Matter from Left Lower Lobe Bronchus, Via Natural or Artificial Opening Endoscopic (ICD-10-PCS; 2024-11-29)
PROC: 0BC18ZZ Extirpation of Matter from Trachea, Via Natural or Artificial Opening Endoscopic (ICD-10-PCS; 2024-11-29)
DX: A41.89 Other specified sepsis (principal); J96.01 Acute respiratory failure with hypoxia; I24.89 Other forms of acute ischemic heart disease; E44.1 Mild protein-calorie malnutrition; J44.1 Chronic obstructive pulmonary disease with (acute) exacerbation; F32.9 Major depressive disorder, single episode, unspecified; F41.9 Anxiety disorder, unspecified; J44.0 Chronic obstructive pulmonary disease with (acute) lower respiratory infection; B96.20 Unspecified Escherichia coli [E. coli] as the cause of diseases classified elsewhere; I48.0 Paroxysmal atrial fibrillation; F19.11 Other psychoactive substance abuse, in remission; J20.8 Acute bronchitis due to other specified organisms; E78.5 Hyperlipidemia, unspecified; Z82.49 Family history of ischemic heart disease and other diseases of the circulatory system; Z88.6 Allergy status to analgesic agent; Z79.899 Other long term (current) drug therapy; Z68.24 Body mass index [BMI] 24.0-24.9, adult; Z87.891 Personal history of nicotine dependence

== ENCOUNTER 2024-12-07 16:12 | Inpatient (IN) | payer OTHER ==
[2024-12-07] VITALS (7 sets, daily range): BP systolic 107–148; BP diastolic 64–90
[~2024-12-07] VITALS: Ht 177.8 cm; Wt 80.3 kg
[~2024-12-07 16:12] MED LIST changes: +CARDIZEM CD360 MG PO; +CEFUROXIME AXE500 MG PO; +DOXYCYCLINE HY100 M3 PO; +XARE20MG PO
[2024-12-07] MEDS ORDERED: LORazepam 1 MG TAB PO ONE (16:20)
[2024-12-07] MEDS ORDERED: Albuterol Sulf/Ipratropium 3 ML VIAL NEB ONE (16:20)
[2024-12-07 18:05] LABS: BASO % 0.2 % (0.0-1.0); HEMATOCRIT 36.8 % (42.0-52.0); MEAN CELL VOLUME 90.6 fl (80.0-94.0); MEAN CORPUSCULAR HGB 29.1 pg (27.0-31.0); MEAN CORPUSCULAR HGB CONC 32.1 g/dl (33.0-37.0); MONO # 0.6 10*3/uL (0.1-1.0); MONO % 5.2 % (3.0-9.0); NEUT # 10.6 10*3/uL (2.3-7.9); NEUT % 85.7 % (47.0-73.0); PLATELET COUNT AUTOMATED 162 10*3/uL (130-400); RED BLOOD COUNT 4.06 10*6/uL (4.50-5.90); RED CELL DISTRI WIDTH 13.5 % (0-14.5); WHITE BLOOD COUNT 12.4 10*3/uL (4.8-10.8)
[2024-12-07] MEDS ORDERED: dilTIAZem Hydrochloride 25 MG/5 ML VIAL IV ONE (18:25)
[2024-12-07 18:35] LABS: BILIRUBIN Negative (Negative); BLOOD Negative (Negative); CLARITY Clear (Clear); COLOR Yellow (Yellow); GLUCOSE Negative (Negative); KETONE Negative (Negative); LEUKO ESTERASE Negative (Negative); NITRITE Negative (Negative); UROBILINOGEN 0.2 E.U./dl (0.0-1.0)
[2024-12-07 18:36] LABS: ALKALINE PHOSPHATASE 33 U/L (46-116); BUN 23 mg/dl (9-23); CHLORIDE 97 mmol/L (98-107); POTASSIUM 3.9 mmol/L (3.4-5.1); SGPT/ALT 21 U/L (5-49)
[2024-12-07 18:43] LABS: URINE AMPHETAMINES Negative (1000ng/ml); URINE BARBITURATES Negative (200ng/ml); URINE BENZODIAZEPINES Negative (200ng/ml); URINE CANNABINOIDS (THC) Negative (50ng/ml); URINE COCAINE Negative (300ng/ml); URINE METHADONE Negative (300ng/ml); URINE OPIATES Negative (300ng/ml); URINE PHENCYCLIDINE Negative (25ng/ml)
[2024-12-07 18:46] LABS: BACTERIA TRACE; RBC 0-2 rbc/hpf (0-2); WBC 0-2 wbc/hpf (0-5)
[2024-12-07] MEDS ORDERED: dilTIAZem Hydrochloride 100 ML IV ONE (19:00)
[2024-12-07] MEDS ORDERED: dilTIAZem Hydrochloride 100 ML IV SCH (19:20)
[2024-12-07] MEDS ORDERED: ACETAMINOPHEN 325 MG TAB PO PRN (20:05)
[2024-12-07] MEDS ORDERED: ACETAMINOPHEN 650 MG SUPP R PRN (20:05)
[2024-12-07] MEDS ORDERED: Magnesium Hydroxide 30 ML UDC PO PRN (20:05)
[2024-12-07] MEDS ORDERED: Ondansetron Hydrochloride 4 MG/2 ML VIAL IV PRN (20:05)
[2024-12-07] MEDS ORDERED: BISACODYL 5 MG TAB PO PRN (20:05)
[2024-12-07] MEDS ORDERED: Acetaminophen/Hydrocodone 5 MG/325 MG TABLET PO PRN (20:05)
[2024-12-07] MEDS ORDERED: BISACODYL 10 MG SUPP R PRN (20:05)
[2024-12-07] MEDS ORDERED: LORazepam 1 MG TAB PO PRN (20:25)
[2024-12-07] MEDS ORDERED: cefTRIAXone Sodium 2 GM in SYRINGE INFUSION 20 ML IV SCH (21:00)
[2024-12-07] MEDS ORDERED: BUPRENORPHINE HCL/NALOXONE 8 MG-2 MG SL TABLET SL SCH (22:00)
[2024-12-07] MEDS ORDERED: methylPREDNISolone sod succ 40 MG VIAL IV SCH (22:00)
[2024-12-08] VITALS (12 sets, daily range): BP systolic 107–142; BP diastolic 75–90
[2024-12-08 05:37] LABS: ALKALINE PHOSPHATASE 31 U/L (46-116); BUN 19 mg/dl (9-23); CHLORIDE 99 mmol/L (98-107); SGPT/ALT 22 U/L (5-49); TOTAL PROTEIN 5.6 gm/dL (6.0-8.0)
[2024-12-08 06:26] LABS: BASO % 0.1 % (0.0-1.0); HEMATOCRIT 36.5 % (42.0-52.0); MEAN CELL VOLUME 91.7 fl (80.0-94.0); MEAN CORPUSCULAR HGB 28.6 pg (27.0-31.0); MEAN CORPUSCULAR HGB CONC 31.2 g/dl (33.0-37.0); MEAN PLATELET VOLUME 9.2 fl (9.6-12.3); MONO # 0.3 10*3/uL (0.1-1.0); MONO % 3.7 % (3.0-9.0); NEUT # 6.5 10*3/uL (2.3-7.9); NEUT % 81.9 % (47.0-73.0); PLATELET COUNT AUTOMATED 140 10*3/uL (130-400); RED BLOOD COUNT 3.98 10*6/uL (4.50-5.90); RED CELL DISTRI WIDTH 13.7 % (0-14.5); WHITE BLOOD COUNT 7.9 10*3/uL (4.8-10.8)
[2024-12-08] MEDS ORDERED: RIVAROXABAN 20 MG TAB PO SCH (10:00)
[2024-12-08] MEDS ORDERED: risperiDONE 0.5 MG TAB PO ONE (12:00)
[2024-12-08] MEDS ORDERED: DIGOXIN 500 MCG/2 ML AMP IV ONE (12:00)
[2024-12-08] MEDS ORDERED: DIVALPROEX SODIUM 125 MG CAP PO SCH (14:00)
[2024-12-08 14:11] LABS: ABG BASE EXCESS 0.7 mmol/L (-2.0-3.0); ABG O2 SATURATION 96.3 % (94.0-98.0); ARTERIAL BLOOD GAS PH 7.373 (7.350-7.450); ARTERIAL BLOOD GAS PO2 89.3 mmHg (83.0-108.0)
[2024-12-08] MEDS ORDERED: dilTIAZem CD 180 MG CAP PO SCH (18:25)
[2024-12-08] MEDS ORDERED: GABAPENTIN 800 MG TAB PO SCH (22:00)
[2024-12-09] VITALS (10 sets, daily range): BP systolic 117–140; BP diastolic 71–88
[2024-12-09] MEDS ORDERED: OMEPRAZOLE 20 MG CAP PO SCH (06:00)
[2024-12-09] MEDS ORDERED: CITALOPRAM 20 MG TAB PO SCH (10:00)
[2024-12-09] MEDS ORDERED: Vitamin D 1,000 IU TAB (25 MCG) PO SCH (10:00)
[2024-12-09] MEDS ORDERED: Montelukast Sodium 10 MG TAB PO SCH (10:00)
[2024-12-09] MEDS ORDERED: DIGOXIN 125 MCG TAB PO SCH (14:00)
[2024-12-10] VITALS: BP 130/84
[2024-12-10 04:00] VITALS: BP 134/81
[2024-12-10 08:00] VITALS: BP 138/90
[2024-12-10] MEDS ORDERED: ATORVASTATIN CALCIUM 40 MG TABLET PO SCH (10:00)
[2024-12-10] MEDS ORDERED: FUROSEMIDE 20 MG/2 ML VIAL IV SCH (10:00)
[2024-12-10 16:00] VITALS: BP 138/76
[2024-12-10 20:00] VITALS: BP 138/76
[2024-12-10] MEDS ORDERED: CEFTRIAXONE SODIUM 2 GM IM ONE (21:00)
[2024-12-10] MEDS ORDERED: dilTIAZem Hydrochloride 100 ML IV SCH (23:25)
[2024-12-10] MEDS ORDERED: dilTIAZem Hydrochloride 25 MG/5 ML VIAL IV ONE ×2 (23:25→23:38)
[2024-12-11] VITALS: BP 110/68
[2024-12-11 04:00] VITALS: BP 110/68
[2024-12-11 08:00] VITALS: BP 133/49
[2024-12-11 12:00] VITALS: BP 110/64
[2024-12-11] MEDS ORDERED: LORazepam 2 MG/ML VIAL IV PRN (12:00)
[2024-12-11 14:00] VITALS: BP 107/73
[2024-12-11 20:00] VITALS: BP 122/80
[2024-12-12] VITALS: BP 122/80
[2024-12-12 04:00] VITALS: BP 139/83
[2024-12-12 06:06] LABS: BASO % 0.1 % (0.0-1.0); MEAN CELL VOLUME 93.8 fl (80.0-94.0); MEAN CORPUSCULAR HGB 29.1 pg (27.0-31.0); MEAN PLATELET VOLUME 9.3 fl (9.6-12.3); MONO # 0.3 10*3/uL (0.1-1.0); MONO % 2.7 % (3.0-9.0); NEUT % 83.9 % (47.0-73.0); PLATELET COUNT AUTOMATED 142 10*3/uL (130-400); RED BLOOD COUNT 4.16 10*6/uL (4.50-5.90); RED CELL DISTRI WIDTH 13.6 % (0-14.5); WHITE BLOOD COUNT 9.6 10*3/uL (4.8-10.8)
[2024-12-12 07:20] LABS: ALKALINE PHOSPHATASE 30 U/L (46-116); BUN 21 mg/dl (9-23); CHLORIDE 98 mmol/L (98-107); POTASSIUM 4.5 mmol/L (3.4-5.1); SGPT/ALT 21 U/L (5-49); TOTAL PROTEIN 5.9 gm/dL (6.0-8.0)
[2024-12-12 08:00] VITALS: BP 101/81
[2024-12-12] MEDS ORDERED: methylPREDNISolone sod succ 40 MG VIAL IV SCH (10:00)
[2024-12-12] MEDS ORDERED: ARIPiprazole 2 MG TAB PO SCH (10:00)
[2024-12-12] MEDS ORDERED: ARIPiprazole 5 MG TAB PO SCH ×2 (10:00)
[2024-12-12 12:00] VITALS: BP 127/55
[2024-12-12 16:00] VITALS: BP 118/78
[2024-12-12] MEDS ORDERED: Albuterol Sulf/Ipratropium 3 ML VIAL NEB PRN (21:30)
[2024-12-13] VITALS (9 sets, daily range): BP systolic 99–126; BP diastolic 65–86
[2024-12-13] MEDS ORDERED: Rivastigmine Tartrate 4.6 MG/24 HR PATCH T SCH (10:00)
[2024-12-13] MEDS ORDERED: FUROSEMIDE 40 MG/4 ML VIAL IV SCH (10:00)
[2024-12-13] MEDS ORDERED: GABAPENTIN 800 MG TAB PO SCH (22:00)
[2024-12-13] MEDS ORDERED: Metoprolol Tartrate 5 MG/5 ML VIAL IV ONE (22:10)
[2024-12-13] MEDS ORDERED: SODIUM CHLORIDE 0.9% 500 ML IV ONE (22:10)
[2024-12-13] MEDS ORDERED: DIGOXIN 500 MCG/2 ML AMP IV ONE (22:30)
[2024-12-14 01:30] VITALS: BP 121/86
[2024-12-14 05:56] LABS: ALKALINE PHOSPHATASE 31 U/L (46-116); BUN 20 mg/dl (9-23); CHLORIDE 100 mmol/L (98-107); POTASSIUM 4.4 mmol/L (3.4-5.1); SGPT/ALT 17 U/L (5-49); TOTAL PROTEIN 5.6 gm/dL (6.0-8.0)
[2024-12-14 06:10] LABS: HEMATOCRIT 38.9 % (42.0-52.0); MEAN CORPUSCULAR HGB 29.2 pg (27.0-31.0); MEAN CORPUSCULAR HGB CONC 31.1 g/dl (33.0-37.0); MEAN PLATELET VOLUME 9.6 fl (9.6-12.3); MONO # 0.2 10*3/uL (0.1-1.0); MONO % 2.9 % (3.0-9.0); NEUT # 6.9 10*3/uL (2.3-7.9); NEUT % 87.3 % (47.0-73.0); PLATELET COUNT AUTOMATED 121 10*3/uL (130-400); RED BLOOD COUNT 4.14 10*6/uL (4.50-5.90); RED CELL DISTRI WIDTH 13.4 % (0-14.5); WHITE BLOOD COUNT 7.9 10*3/uL (4.8-10.8)
[2024-12-14 07:55] VITALS: BP 127/75
[2024-12-14 12:00] VITALS: BP 132/80
[2024-12-14] MEDS ORDERED: BARIUM SULFATE 98% 340 GM BOT PO ONE ×2 (12:45→13:11)
[2024-12-14 16:00] VITALS: BP 127/82
[2024-12-14] MEDS ORDERED: AMMONIUM LACTATE 12% LOTION T SCH (22:00)
[2024-12-15] VITALS (7 sets, daily range): BP systolic 100–142; BP diastolic 62–93
[2024-12-15] MEDS ORDERED: Metoprolol Tartrate 5 MG/5 ML VIAL IV ONE (06:30)
[2024-12-15] MEDS ORDERED: DIGOXIN125 MCG PO (08:19)
[2024-12-15] MEDS ORDERED: ARIPIPRAZOLE5 MG PO (08:19)
[2024-12-15] MEDS ORDERED: RIVASTIGMINE1 EAC1 T (08:19)
[2024-12-15] MEDS ORDERED: CITALOPRAM20 MG PO (08:19)
[2024-12-15] MEDS ORDERED: dilTIAZem CD 240 MG CAP PO SCH (10:00)
[2024-12-15] MEDS ORDERED: predniSONE 10 MG TAB PO SCH (10:00)
[2024-12-15] MEDS ORDERED: BUPRENORPHINE HCL/NALOXONE 8 MG-2 MG SL TABLET SL SCH (10:00)
[2024-12-15] MEDS ORDERED: diazePAM 10 MG/2 ML SYR IV ONE (10:40)
[2024-12-15] MEDS ORDERED: ADENOSINE 6 MG/2 ML VIAL IV ONE ×4 (10:50→11:00)
[2024-12-15] MEDS ORDERED: ADENOSINE 12 MG IV ONE (10:55)
[2024-12-15] MEDS ORDERED: DIAZEPAM IV ONE (11:00)
[2024-12-15] MEDS ORDERED: Metoprolol Tartrate 25 MG TAB PO SCH (17:05)
[2024-12-16] VITALS: BP 111/79
[2024-12-16 08:00] VITALS: BP 126/83
[2024-12-16] MEDS ORDERED: Rivastigmine Tartrate 9.5 MG/24 HR PATCH T SCH (10:00)
[2024-12-16] MEDS ORDERED: CITALOPRAM 20 MG TAB PO SCH (10:00)
[2024-12-16 12:00] VITALS: BP 101/77
== END 2024-12-16 14:15 | disposition short-term general hospital (02) | DRG 145 ==
LOC: ED 16:12 → EDHOLD 19:03 → 4E 19:03
PROVIDERS: Counselor Professional; Internal Medicine; Student in an Organized Health Care Education/Training Program; ADMIT Internal Medicine; ATTEND Internal Medicine
PROC: BD12YZZ Fluoroscopy of Stomach using Other Contrast (ICD-10-PCS; principal; 2024-12-14)
DX: J20.8 Acute bronchitis due to other specified organisms (principal); J44.1 Chronic obstructive pulmonary disease with (acute) exacerbation; J96.21 Acute and chronic respiratory failure with hypoxia; E44.1 Mild protein-calorie malnutrition; J44.0 Chronic obstructive pulmonary disease with (acute) lower respiratory infection; I48.91 Unspecified atrial fibrillation; F63.81 Intermittent explosive disorder; I10 Essential (primary) hypertension; E78.5 Hyperlipidemia, unspecified; D72.829 Elevated white blood cell count, unspecified; D64.9 Anemia, unspecified; R73.9 Hyperglycemia, unspecified; K21.9 Gastro-esophageal reflux disease without esophagitis; B96.20 Unspecified Escherichia coli [E. coli] as the cause of diseases classified elsewhere; F79 Unspecified intellectual disabilities; E55.9 Vitamin D deficiency, unspecified; F31.9 Bipolar disorder, unspecified; F41.1 Generalized anxiety disorder; Z88.8 Allergy status to other drugs, medicaments and biological substances; Z79.899 Other long term (current) drug therapy; Z79.01 Long term (current) use of anticoagulants; Z79.2 Long term (current) use of antibiotics; Z87.891 Personal history of nicotine dependence; Z82.49 Family history of ischemic heart disease and other diseases of the circulatory system; Z83.3 Family history of diabetes mellitus; Z80.8 Family history of malignant neoplasm of other organs or systems; Z68.24 Body mass index [BMI] 24.0-24.9, adult

== ENCOUNTER 2024-12-19 10:12 | Inpatient (IN) | payer OTHER ==
[~2024-12-19] VITALS: Ht 175.2 cm; Wt 77.0 kg
[~2024-12-19 10:12] MED LIST changes: +ARIPIPRAZOLE5 MG PO; +CITALOPRAM20 MG PO; +DIGOXIN125 MCG PO; +RIVASTIGMINE1 EAC1 T
[2024-12-19 10:32] VITALS: BP 104/49
[2024-12-19] MEDS ORDERED: PREDNISONE20 M1 PO (12:40)
[2024-12-19] MEDS ORDERED: PANTOPRAZOLE SO40 MG PO (12:41)
[2024-12-19] MEDS ORDERED: VITAMIN D325 MCG PO (12:44)
[2024-12-19] MEDS ORDERED: Ipratropium Brom3 ML INH (12:47)
[2024-12-19] MEDS ORDERED: ATIVAN0.5 MG PO (12:48)
[2024-12-19] MEDS ORDERED: MELATONIN5 M1 PO (12:49)
[2024-12-19] MEDS ORDERED: Ondansetron4 MG IV (12:51)
[2024-12-19] MEDS ORDERED: Ziprasidone Mesylate 20 MG VIAL IM PRN (13:00)
[2024-12-19] MEDS ORDERED: Water, Sterile 10 ML VIAL IM PRN (13:00)
[2024-12-19] MEDS ORDERED: hydrOXYzine hydrochloride 50 MG/ML VIAL IM PRN (13:05)
[2024-12-19] MEDS ORDERED: LORazepam 1 MG TAB PO PRN (13:05)
[2024-12-19] MEDS ORDERED: MG-AL HYDROXIDE/SIMETICONE 30 ML UDC PO PRN (13:05)
[2024-12-19] MEDS ORDERED: ACETAMINOPHEN 325 MG TAB PO PRN (13:05)
[2024-12-19] MEDS ORDERED: Magnesium Hydroxide 30 ML UDC PO PRN (13:05)
[2024-12-19] MEDS ORDERED: Menthol/Zinc Oxide 4 GM THIN T PRN (13:15)
[2024-12-19] MEDS ORDERED: Melatonin 5 MG TABLET PO PRN (18:30)
[2024-12-19] MEDS ORDERED: Albuterol Sulf/Ipratropium 3 ML VIAL NEB SCH (19:02)
[2024-12-19 20:00] VITALS: BP 145/80
[2024-12-19] MEDS ORDERED: SIMVASTATIN 20 MG TAB PO SCH (21:00)
[2024-12-19] MEDS ORDERED: BUPRENORPHINE HCL/NALOXONE 8 MG-2 MG SL TABLET SL SCH (21:00)
[2024-12-19] MEDS ORDERED: GABAPENTIN 800 MG TAB PO SCH (21:00)
[2024-12-20] MEDS ORDERED: OMEPRAZOLE 20 MG CAP PO SCH (06:00)
[2024-12-20 07:22] LABS: ALKALINE PHOSPHATASE 34 U/L (46-116); BUN 12 mg/dl (9-23); CHLORIDE 103 mmol/L (98-107); CHOLESTEROL 147 mg/dL (<200); LDL CHOLESTEROL 84 mg/dL (9-159); POTASSIUM 4.1 mmol/L (3.4-5.1); SGPT/ALT 25 U/L (5-49); TOTAL PROTEIN 6.1 gm/dL (6.0-8.0); TRIGLYCERIDES 121 mg/dl (<150)
[2024-12-20 08:00] VITALS: BP 116/88
[2024-12-20 08:15] LABS: VITAMIN D, 25-HYDROXY 39.6 ng/mL (30-100)
[2024-12-20] MEDS ORDERED: ARIPiprazole 5 MG TAB PO SCH ×2 (09:00→21:00)
[2024-12-20] MEDS ORDERED: Pantoprazole Sodium 40 MG TAB PO SCH (09:00)
[2024-12-20] MEDS ORDERED: predniSONE 10 MG TAB PO SCH (09:00)
[2024-12-20] MEDS ORDERED: Losartan Potassium 50 MG TAB PO SCH (09:00)
[2024-12-20] MEDS ORDERED: RIVAROXABAN 20 MG TAB PO SCH (09:00)
[2024-12-20] MEDS ORDERED: Rivastigmine Tartrate 9.5 MG/24 HR PATCH T SCH (09:00)
[2024-12-20] MEDS ORDERED: hydroCHLOROthiazide 25 MG TAB PO SCH (09:00)
[2024-12-20] MEDS ORDERED: CITALOPRAM 20 MG TAB PO SCH (09:00)
[2024-12-20] MEDS ORDERED: Cholecalciferol 2,000 UNIT TABLET (50 MCG) PO SCH (09:00)
[2024-12-20] MEDS ORDERED: dilTIAZem CD 180 MG CAP PO SCH (09:00)
[2024-12-20] MEDS ORDERED: Montelukast Sodium 10 MG TAB PO SCH (09:00)
[2024-12-20 13:06] LABS: BASO % 0.1 % (0.0-1.0); EOS # 0.1 10*3/uL (0.0-0.4); EOS % 1.2 % (1.0-4.0); HEMATOCRIT 42.1 % (42.0-52.0); MEAN CELL VOLUME 94.4 fl (80.0-94.0); MEAN CORPUSCULAR HGB 29.4 pg (27.0-31.0); MEAN CORPUSCULAR HGB CONC 31.1 g/dl (33.0-37.0); MEAN PLATELET VOLUME 9.2 fl (9.6-12.3); MONO # 0.5 10*3/uL (0.1-1.0); MONO % 7.3 % (3.0-9.0); NEUT # 4.7 10*3/uL (2.3-7.9); NEUT % 64.8 % (47.0-73.0); PLATELET COUNT AUTOMATED 140 10*3/uL (130-400); RED BLOOD COUNT 4.46 10*6/uL (4.50-5.90); RED CELL DISTRI WIDTH 13.5 % (0-14.5); WHITE BLOOD COUNT 7.3 10*3/uL (4.8-10.8)
[2024-12-20 14:11] LABS: BILIRUBIN Negative (Negative); BLOOD Negative (Negative); CLARITY Cloudy (Clear); COLOR Yellow (Yellow); GLUCOSE Negative (Negative); KETONE Negative (Negative); LEUKO ESTERASE Negative (Negative); NITRITE Negative (Negative); PH 8.5 (4.5-8.0); SPECIFIC GRAVITY 1.015 (1.001-1.030)
[2024-12-20 14:25] LABS: BACTERIA TRACE; EPITHELIAL CELLS 0-2; RBC 0-2 rbc/hpf (0-2)
[2024-12-20 20:00] VITALS: BP 100/86
[2024-12-20] MEDS ORDERED: Mirtazapine 15 MG TAB PO SCH (21:00)
[2024-12-21 08:00] VITALS: BP 92/63
[2024-12-21] MEDS ORDERED: MUPIROCIN 15 GM TUBE T SCH (10:00)
[2024-12-21 20:00] VITALS: BP 97/67
[2024-12-22 08:21] VITALS: BP 94/65
[2024-12-22] MEDS ORDERED: HYDR25T PO (08:49)
[2024-12-22] MEDS ORDERED: ABILIFY10 MG PO (10:01)
[2024-12-22] MEDS ORDERED: MELATONIN5 M7 PO (10:01)
[2024-12-22] MEDS ORDERED: MIRTAZAPINE15 M2 PO (10:01)
[2024-12-22] MEDS ORDERED: RIVASTIGMINE1 EAC1 T (10:01)
[2024-12-22] MEDS ORDERED: CIPRO500 MG PO (18:15)
[2024-12-23] MEDS ORDERED: LEVOFLOXACIN500 MG PO (14:46)
== END 2024-12-22 12:19 | disposition home or self-care (01) | DRG 751 ==
LOC: 3N 10:12
PROVIDERS: ADMIT Psychiatry & Neurology Psychiatry; ATTEND Psychiatry & Neurology Psychiatry
PROC: GZHZZZZ Group Psychotherapy (ICD-10-PCS; principal; 2024-12-20)
PROC: GZ51ZZZ Individual Psychotherapy, Behavioral (ICD-10-PCS; 2024-12-20)
DX: F33.2 Major depressive disorder, recurrent severe without psychotic features (principal); I48.92 Unspecified atrial flutter; F63.81 Intermittent explosive disorder; F41.1 Generalized anxiety disorder; J44.9 Chronic obstructive pulmonary disease, unspecified; I48.91 Unspecified atrial fibrillation; J45.909 Unspecified asthma, uncomplicated; I10 Essential (primary) hypertension; G47.00 Insomnia, unspecified; E78.5 Hyperlipidemia, unspecified; Z88.2 Allergy status to sulfonamides; Z88.6 Allergy status to analgesic agent; Z88.0 Allergy status to penicillin; Z88.8 Allergy status to other drugs, medicaments and biological substances; Z87.891 Personal history of nicotine dependence; Z88.5 Allergy status to narcotic agent; Z79.899 Other long term (current) drug therapy

== ENCOUNTER 2024-12-22 15:44 | Emergency (ER) | payer OTHER ==
[~2024-12-22] VITALS: Wt 82.1 kg
[~2024-12-22 15:44] MED LIST changes: +ABILIFY10 MG PO; +ATIVAN0.5 MG PO; +HYDR25T PO; +Ipratropium Brom3 ML INH; +MELATONIN5 M1 PO; +MELATONIN5 M7 PO; +MIRTAZAPINE15 M2 PO; +Ondansetron4 MG IV; +PANTOPRAZOLE SO40 MG PO; +PREDNISONE20 M1 PO; +VITAMIN D325 MCG PO
[2024-12-22 15:50] VITALS: BP 134/64
[2024-12-22 16:33] LABS: EOS # 0.1 10*3/uL (0.0-0.4); EOS % 0.7 % (1.0-4.0); HEMATOCRIT 29.5 % (42.0-52.0); MEAN CELL VOLUME 91.9 fl (80.0-94.0); MEAN CORPUSCULAR HGB 29.3 pg (27.0-31.0); MEAN CORPUSCULAR HGB CONC 31.9 g/dl (33.0-37.0); MEAN PLATELET VOLUME 9.2 fl (9.6-12.3); MONO # 0.5 10*3/uL (0.1-1.0); MONO % 6.3 % (3.0-9.0); NEUT # 6.1 10*3/uL (2.3-7.9); NEUT % 74.6 % (47.0-73.0); PLATELET COUNT AUTOMATED 115 10*3/uL (130-400); RED BLOOD COUNT 3.21 10*6/uL (4.50-5.90); RED CELL DISTRI WIDTH 14.2 % (0-14.5); WHITE BLOOD COUNT 8.1 10*3/uL (4.8-10.8)
[2024-12-22 16:54] LABS: ALKALINE PHOSPHATASE 27 U/L (46-116); BUN 20 mg/dl (9-23); CHLORIDE 99 mmol/L (98-107); POTASSIUM 3.4 mmol/L (3.4-5.1); SGPT/ALT 21 U/L (5-49); TOTAL PROTEIN 5.2 gm/dL (6.0-8.0)
[2024-12-22 16:56] LABS: ETHYL ALCOHOL < 3.0 mg/dl (<3)
[2024-12-22 17:15] LABS: BILIRUBIN 1+ (Negative); BLOOD Negative (Negative); CLARITY Cloudy (Clear); COLOR Dark Yellow (Yellow); GLUCOSE Negative (Negative); KETONE Trace (Negative); LEUKO ESTERASE 1+ (Negative); NITRITE Negative (Negative); PH 5.5 (4.5-8.0); SPECIFIC GRAVITY 1.025 (1.001-1.030)
[2024-12-22 17:22] LABS: URINE AMPHETAMINES Negative (1000ng/ml); URINE BARBITURATES Negative (200ng/ml); URINE BENZODIAZEPINES Negative (200ng/ml); URINE CANNABINOIDS (THC) Negative (50ng/ml); URINE COCAINE Negative (300ng/ml); URINE METHADONE Negative (300ng/ml); URINE OPIATES Negative (300ng/ml); URINE PHENCYCLIDINE Negative (25ng/ml)
[2024-12-22 17:56] LABS: RBC 0-2 rbc/hpf (0-2)
[2024-12-22 17:57] LABS: BACTERIA 2+; MUCOUS 2+
[2024-12-22] MEDS ORDERED: CIPRO500 MG PO (18:15)
[2024-12-22] MEDS ORDERED: MAGNESIUM OXIDE 400 MG TAB PO ONE (18:20)
[2024-12-23] MEDS ORDERED: LEVOFLOXACIN500 MG PO (14:46)
== END 2024-12-22 18:28 | disposition home or self-care (01) ==
LOC: ED 15:44
PROVIDERS: Internal Medicine
DX: N39.0 Urinary tract infection, site not specified (principal); E83.42 Hypomagnesemia; E87.20 Acidosis, unspecified; D64.9 Anemia, unspecified; I10 Essential (primary) hypertension; J44.9 Chronic obstructive pulmonary disease, unspecified; J45.909 Unspecified asthma, uncomplicated; F32.A Depression, unspecified; F41.9 Anxiety disorder, unspecified; Z79.899 Other long term (current) drug therapy; Z88.0 Allergy status to penicillin; Z88.1 Allergy status to other antibiotic agents; Z88.2 Allergy status to sulfonamides; Z88.5 Allergy status to narcotic agent; Z88.6 Allergy status to analgesic agent; Z98.890 Other specified postprocedural states

== ENCOUNTER 2024-12-23 12:20 | Emergency (ER) | payer OTHER ==
[~2024-12-23] VITALS: Wt 75.7 kg
[2024-12-23 12:25] VITALS: BP 159/103
[2024-12-23] MEDS ORDERED: Albuterol Sulf/Ipratropium 3 ML VIAL NEB ONE (12:40)
[2024-12-23 13:01] LABS: BASO % 0.1 % (0.0-1.0); EOS % 0.1 % (1.0-4.0); HEMATOCRIT 28.9 % (42.0-52.0); MEAN CELL VOLUME 92.9 fl (80.0-94.0); MEAN CORPUSCULAR HGB 28.9 pg (27.0-31.0); MEAN CORPUSCULAR HGB CONC 31.1 g/dl (33.0-37.0); MEAN PLATELET VOLUME 9.2 fl (9.6-12.3); MONO # 0.4 10*3/uL (0.1-1.0); MONO % 4.9 % (3.0-9.0); NEUT # 5.9 10*3/uL (2.3-7.9); NEUT % 75.4 % (47.0-73.0); PLATELET COUNT AUTOMATED 120 10*3/uL (130-400); RED BLOOD COUNT 3.11 10*6/uL (4.50-5.90); RED CELL DISTRI WIDTH 14.5 % (0-14.5); WHITE BLOOD COUNT 7.8 10*3/uL (4.8-10.8)
[2024-12-23 13:22] LABS: POTASSIUM 4.1 mmol/L (3.4-5.1)
[2024-12-23] MEDS ORDERED: LEVOFLOXACIN500 MG PO (14:46)
== END 2024-12-23 14:44 | disposition left against medical advice (07) ==
LOC: ED 12:20
PROVIDERS: Emergency Medicine
DX: R06.02 Shortness of breath (principal); J44.9 Chronic obstructive pulmonary disease, unspecified; F32.A Depression, unspecified; Z53.29 Procedure and treatment not carried out because of patient's decision for other reasons; Z88.2 Allergy status to sulfonamides; Z88.6 Allergy status to analgesic agent; Z88.8 Allergy status to other drugs, medicaments and biological substances; Z88.0 Allergy status to penicillin; Z79.899 Other long term (current) drug therapy; Z98.890 Other specified postprocedural states; Z87.891 Personal history of nicotine dependence

== ENCOUNTER 2025-01-17 16:52 | Emergency (ER) | payer OTHER ==
[2025-01-17 17:08] VITALS: BP 123/85
== END 2025-01-17 18:57 | disposition short-term general hospital (02) ==
LOC: ED 16:52
DX: T20.00XA Burn of unspecified degree of head, face, and neck, unspecified site, initial encounter (principal); I10 Essential (primary) hypertension; J45.909 Unspecified asthma, uncomplicated; J44.9 Chronic obstructive pulmonary disease, unspecified; F32.A Depression, unspecified; F41.9 Anxiety disorder, unspecified; Z79.899 Other long term (current) drug therapy; Z88.0 Allergy status to penicillin; Z88.2 Allergy status to sulfonamides; Z88.5 Allergy status to narcotic agent; Z88.6 Allergy status to analgesic agent; Z98.890 Other specified postprocedural states; X15.8XXA Contact with other hot household appliances, initial encounter; Y93.89 Activity, other specified; Y92.89 Other specified places as the place of occurrence of the external cause; Y99.8 Other external cause status

== ENCOUNTER 2025-02-04 10:22 | Observation (INO) | payer OTHER ==
[~2025-02-04] VITALS: Ht 175.2 cm; Wt 72.1 kg
[2025-02-04 10:26] VITALS: BP 144/99
[2025-02-04] MEDS ORDERED: AZITHROMYCIN 250 MG TAB PO ONE (10:45)
[2025-02-04] MEDS ORDERED: methylPREDNISolone sod succ 125 MG VIAL IV ONE (10:45)
[2025-02-04] MEDS ORDERED: Albuterol Sulfate 2.5 MG/3 ML VIAL NEB ONE (10:45)
[2025-02-04] MEDS ORDERED: MAGNESIUM SULFATE 50 ML IV ONE (10:45)
[2025-02-04 10:50] VITALS: BP 144/99
[2025-02-04] MEDS ORDERED: Albuterol Sulf/Ipratropium 3 ML VIAL NEB SCH (13:15)
[2025-02-04 13:18] VITALS: BP 137/85
[2025-02-04] MEDS ORDERED: GABAPENTIN 800 MG TAB PO SCH (14:00)
[2025-02-04 17:57] VITALS: BP 137/87
[2025-02-04 20:00] VITALS: BP 110/77
[2025-02-04] MEDS ORDERED: Mirtazapine 15 MG TAB PO SCH (22:00)
[2025-02-04] MEDS ORDERED: BUPRENORPHINE HCL/NALOXONE 8 MG-2 MG SL TABLET SL SCH (22:00)
[2025-02-05] VITALS: BP 114/78
[2025-02-05] MEDS ORDERED: Pantoprazole Sodium 40 MG TAB PO SCH (06:00)
[2025-02-05 08:00] VITALS: BP 132/80
[2025-02-05] MEDS ORDERED: ARIPiprazole 5 MG TAB PO SCH (10:00)
[2025-02-05] MEDS ORDERED: dilTIAZem CD 180 MG CAP PO SCH (10:00)
[2025-02-05] MEDS ORDERED: Rivastigmine Tartrate 9.5 MG/24 HR PATCH T SCH (10:00)
[2025-02-05] MEDS ORDERED: LEVOFLOXACIN 750 MG TAB PO SCH (10:00)
[2025-02-05] MEDS ORDERED: RIVAROXABAN 20 MG TAB PO SCH (10:00)
[2025-02-05] MEDS ORDERED: BUPRENORPHINE HCL/NALOXONE 8 MG-2 MG SL TABLET SL SCH (10:00)
[2025-02-05] MEDS ORDERED: predniSONE 20 MG TAB PO SCH (10:00)
[2025-02-05] MEDS ORDERED: Losartan Potassium 100 MG TABLET PO SCH (10:00)
[2025-02-05 12:00] VITALS: BP 115/67
[2025-02-05] MEDS ORDERED: Cefuroxime Axetil 250 MG TAB PO SCH (15:45)
[2025-02-05 16:00] VITALS: BP 110/67
[2025-02-05] MEDS ORDERED: LINEZOLID 600 MG TAB PO SCH (18:00)
[2025-02-05 20:00] VITALS: BP 106/62; BP 96/56
[2025-02-06] VITALS: BP 102/65
[2025-02-06 06:26] LABS: BASO % 0.1 % (0.0-1.0); EOS % 0.1 % (1.0-4.0); HEMATOCRIT 37.1 % (42.0-52.0); MEAN CELL VOLUME 90.3 fl (80.0-94.0); MEAN CORPUSCULAR HGB 27.5 pg (27.0-31.0); MEAN CORPUSCULAR HGB CONC 30.5 g/dl (33.0-37.0); MEAN PLATELET VOLUME 10.6 fl (9.6-12.3); MONO # 0.6 10*3/uL (0.1-1.0); NEUT # 8.8 10*3/uL (2.3-7.9); NEUT % 75.5 % (47.0-73.0); PLATELET COUNT AUTOMATED 192 10*3/uL (130-400); RED BLOOD COUNT 4.11 10*6/uL (4.50-5.90); RED CELL DISTRI WIDTH 15.3 % (0-14.5); WHITE BLOOD COUNT 11.7 10*3/uL (4.8-10.8)
[2025-02-06 06:51] LABS: ALKALINE PHOSPHATASE 37 U/L (46-116); BUN 16 mg/dl (9-23); CHLORIDE 98 mmol/L (98-107); SGPT/ALT 11 U/L (5-49); TOTAL PROTEIN 6.3 gm/dL (6.0-8.0)
[2025-02-06 12:00] VITALS: BP 109/59
[2025-02-06] MEDS ORDERED: LINEZOLID600 MG PO (14:02)
[2025-02-06] MEDS ORDERED: CARDIZEM CD180 MG PO (14:02)
[2025-02-06] MEDS ORDERED: CEFUROXIME250 MG PO (14:02)
== END 2025-02-06 14:45 | disposition home or self-care (01) ==
LOC: ED 10:22 → 5E 10:49 → EDHOLD 10:49 → 5E 17:06
PROVIDERS: ADMIT Internal Medicine; ATTEND Internal Medicine
DX: J96.01 Acute respiratory failure with hypoxia (principal); J44.1 Chronic obstructive pulmonary disease with (acute) exacerbation; J96.21 Acute and chronic respiratory failure with hypoxia; E78.5 Hyperlipidemia, unspecified; F32.9 Major depressive disorder, single episode, unspecified; Z79.899 Other long term (current) drug therapy

== ENCOUNTER 2025-03-01 03:31 | Inpatient (IN) | payer OTHER ==
[~2025-03-01] VITALS: Ht 175 cm; Wt 68.7 kg
[~2025-03-01 03:31] MED LIST changes: +CARDIZEM CD180 MG PO; +CEFUROXIME250 MG PO; +LINEZOLID600 MG PO
[2025-03-01 03:39] VITALS: BP 112/55
[2025-03-01 03:58] LABS: BASO # 0.0 10*3/uL (0.0-0.1); BASO % 0.3 % (0.0-1.0); EOS # 0.1 10*3/uL (0.0-0.4); EOS % 2.1 % (1.0-4.0); MEAN CELL VOLUME 92.4 fl (80.0-94.0); MEAN CORPUSCULAR HGB 27.8 pg (27.0-31.0); MEAN PLATELET VOLUME 9.7 fl (9.6-12.3); MONO # 0.5 10*3/uL (0.1-1.0); MONO % 7.7 % (3.0-9.0); NEUT # 4.3 10*3/uL (2.3-7.9); NEUT % 69.1 % (47.0-73.0); NUCLEATED RED BLOOD CELL 0.0 % (0.0-0.0); NUCLEATED RED BLOOD CELL 0.0 10*3/uL (0.0-0.0); PLATELET COUNT AUTOMATED 128 10*3/uL (130-400); RED CELL DISTRI WIDTH 15.6 % (0-14.5)
[2025-03-01 04:31] LABS: BUN 9 mg/dl (9-23); SGPT/ALT 15 U/L (5-49)
[2025-03-01] MEDS ORDERED: ACETAMINOPHEN 325 MG TAB PO PRN (06:35)
[2025-03-01 07:32] VITALS: BP 141/85
[2025-03-01 09:47] VITALS: BP 107/71
[2025-03-01] MEDS ORDERED: ABILIFY5 MG PO (10:27)
[2025-03-01] MEDS ORDERED: CITALOPRAM20 MG PO (10:34)
[2025-03-01] MEDS ORDERED: DIGOXIN125 MCG PO (10:35)
[2025-03-01] MEDS ORDERED: ARIPRAZOLE (10:36)
[2025-03-01] MEDS ORDERED: IBU800 MG PO (10:37)
[2025-03-01] MEDS ORDERED: Albuterol Sulf/Ipratropium 3 ML VIAL NEB PRN (11:25)
[2025-03-01] MEDS ORDERED: IBUPROFEN 800 MG TAB PO PRN (11:30)
[2025-03-01] MEDS ORDERED: Albuterol Sulf/Ipratropium 3 ML VIAL NEB SCH (12:00)
[2025-03-01 13:00] VITALS: BP 118/76
[2025-03-01] MEDS ORDERED: DIGOXIN 125 MCG TAB PO SCH (14:00)
[2025-03-01] MEDS ORDERED: GABAPENTIN 400 MG CAP PO SCH ×2 (14:00→22:00)
[2025-03-01] MEDS ORDERED: DEXTROSE 50% 25 GM/50 ML VIAL IV PRN (14:35)
[2025-03-01 16:00] VITALS: BP 107/64; BP 96/60
[2025-03-01] MEDS ORDERED: INSULIN REGULAR, HUMAN 1 UNIT/0.01 ML SC SCH (16:30)
[2025-03-01] MEDS ORDERED: BUPRENORPHINE HCL/NALOXONE 8 MG-2 MG SL TABLET SL SCH (18:00)
[2025-03-01 20:00] VITALS: BP 112/69
[2025-03-01] MEDS ORDERED: LINEZOLID 600 MG TAB PO SCH (22:00)
[2025-03-01] MEDS ORDERED: Mirtazapine 15 MG TAB PO SCH (22:00)
[2025-03-02] VITALS: BP 125/65
[2025-03-02] MEDS ORDERED: OMEPRAZOLE 20 MG CAP PO SCH (06:00)
[2025-03-02 06:26] LABS: BASO # 0.0 10*3/uL (0.0-0.1); BASO % 0.0 % (0.0-1.0); EOS # 0.0 10*3/uL (0.0-0.4); EOS % 0.2 % (1.0-4.0); MEAN CELL VOLUME 91.7 fl (80.0-94.0); MEAN CORPUSCULAR HGB 27.8 pg (27.0-31.0); MEAN PLATELET VOLUME 10.8 fl (9.6-12.3); MONO # 0.2 10*3/uL (0.1-1.0); MONO % 5.2 % (3.0-9.0); NEUT # 3.1 10*3/uL (2.3-7.9); NEUT % 75.6 % (47.0-73.0); NUCLEATED RED BLOOD CELL 0.0 % (0.0-0.0); NUCLEATED RED BLOOD CELL 0.0 10*3/uL (0.0-0.0); PLATELET COUNT AUTOMATED 134 10*3/uL (130-400); RED CELL DISTRI WIDTH 15.4 % (0-14.5)
[2025-03-02 06:53] LABS: BUN 11 mg/dl (9-23)
[2025-03-02 08:00] VITALS: BP 96/54
[2025-03-02] MEDS ORDERED: ARIPiprazole 5 MG TAB PO SCH (10:00)
[2025-03-02] MEDS ORDERED: Rivastigmine Tartrate 9.5 MG/24 HR PATCH T SCH (10:00)
[2025-03-02] MEDS ORDERED: CITALOPRAM 20 MG TAB PO SCH (10:00)
[2025-03-02] MEDS ORDERED: BUPRENORPHINE HCL/NALOXONE 8 MG-2 MG SL TABLET SL SCH ×2 (10:00→22:00)
[2025-03-02 12:00] VITALS: BP 129/71
[2025-03-02] MEDS ORDERED: Albuterol Sulf/Ipratropium 3 ML VIAL NEB SCH (12:00)
[2025-03-02] MEDS ORDERED: DIGOXIN 125 MCG TAB PO SCH (14:00)
[2025-03-02 16:00] VITALS: BP 119/72
[2025-03-02 16:22] LABS: ABG O2 SATURATION 94.5 % (94.0-98.0); ARTERIAL BLOOD GAS PH 7.411 (7.350-7.450); ARTERIAL BLOOD GAS PO2 74.4 mmHg (83.0-108.0)
[2025-03-02 16:23] LABS: ABG BASE EXCESS 8.9 mmol/L (-2.0-3.0)
[2025-03-02 20:00] VITALS: BP 123/69
[2025-03-03] VITALS: BP 104/66
[2025-03-03 08:00] VITALS: BP 122/71
[2025-03-03 11:46] LABS: BASO # 0.0 10*3/uL (0.0-0.1); BASO % 0.0 % (0.0-1.0); EOS # 0.0 10*3/uL (0.0-0.4); EOS % 0.0 % (1.0-4.0); MEAN CELL VOLUME 93.1 fl (80.0-94.0); MEAN CORPUSCULAR HGB 28.2 pg (27.0-31.0); MEAN PLATELET VOLUME 9.3 fl (9.6-12.3); MONO # 0.7 10*3/uL (0.1-1.0); MONO % 8.2 % (3.0-9.0); NEUT # 6.5 10*3/uL (2.3-7.9); NEUT % 76.7 % (47.0-73.0); NUCLEATED RED BLOOD CELL 0.0 % (0.0-0.0); NUCLEATED RED BLOOD CELL 0.0 10*3/uL (0.0-0.0); PLATELET COUNT AUTOMATED 126 10*3/uL (130-400); RED CELL DISTRI WIDTH 15.9 % (0-14.5)
[2025-03-03 12:00] VITALS: BP 139/72
[2025-03-03 12:12] LABS: BUN 11 mg/dl (9-23)
[2025-03-03] MEDS ORDERED: MEDROL DOSEPAK4 MG PO (12:34)
== END 2025-03-03 14:17 | disposition home or self-care (01) | DRG 145 ==
LOC: ED 03:31 → 4E 06:11 → EDHOLD 06:11 → 4E 12:42
PROVIDERS: Internal Medicine; Internal Medicine Critical Care Medicine; ADMIT Internal Medicine; ATTEND Internal Medicine
PROC: 5A09357 Assistance with Respiratory Ventilation, Less than 24 Consecutive Hours, Continuous Positive Airway Pressure (ICD-10-PCS; principal; 2025-03-01)
PROC: 5A09357 Assistance with Respiratory Ventilation, Less than 24 Consecutive Hours, Continuous Positive Airway Pressure (ICD-10-PCS; 2025-03-02)
PROC: 5A09357 Assistance with Respiratory Ventilation, Less than 24 Consecutive Hours, Continuous Positive Airway Pressure (ICD-10-PCS; 2025-03-03)
DX: J20.9 Acute bronchitis, unspecified (principal); J96.02 Acute respiratory failure with hypercapnia; J96.21 Acute and chronic respiratory failure with hypoxia; E44.1 Mild protein-calorie malnutrition; J44.1 Chronic obstructive pulmonary disease with (acute) exacerbation; I48.92 Unspecified atrial flutter; I48.21 Permanent atrial fibrillation; F29 Unspecified psychosis not due to a substance or known physiological condition; J44.0 Chronic obstructive pulmonary disease with (acute) lower respiratory infection; E87.3 Alkalosis; K21.9 Gastro-esophageal reflux disease without esophagitis; I10 Essential (primary) hypertension; E78.5 Hyperlipidemia, unspecified; F03.93 Unspecified dementia, unspecified severity, with mood disturbance; F03.94 Unspecified dementia, unspecified severity, with anxiety; G47.00 Insomnia, unspecified; D64.9 Anemia, unspecified; E55.9 Vitamin D deficiency, unspecified; E11.9 Type 2 diabetes mellitus without complications; Z82.49 Family history of ischemic heart disease and other diseases of the circulatory system; Z88.0 Allergy status to penicillin; Z88.2 Allergy status to sulfonamides; Z88.8 Allergy status to other drugs, medicaments and biological substances; Z91.09 Other allergy status, other than to drugs and biological substances; Z79.899 Other long term (current) drug therapy; Z79.2 Long term (current) use of antibiotics; Z68.23 Body mass index [BMI] 23.0-23.9, adult; Z91.199 Patient's noncompliance with other medical treatment and regimen due to unspecified reason; Z79.01 Long term (current) use of anticoagulants; Z87.891 Personal history of nicotine dependence; Z80.8 Family history of malignant neoplasm of other organs or systems; Z83.3 Family history of diabetes mellitus

== ENCOUNTER 2025-03-05 06:32 | Inpatient (IN) | payer OTHER ==
[~2025-03-05] VITALS: Ht 170.1 cm; Wt 71.9 kg
[~2025-03-05 06:32] MED LIST changes: +ABILIFY5 MG PO; +ARIPRAZOLE
[2025-03-05 06:47] VITALS: BP 131/77
[2025-03-05] MEDS ORDERED: Albuterol Sulf/Ipratropium 3 ML VIAL NEB ONE (07:20)
[2025-03-05 07:54] LABS: BASO # 0.0 10*3/uL (0.0-0.1); BASO % 0.1 % (0.0-1.0); EOS # 0.0 10*3/uL (0.0-0.4); EOS % 0.3 % (1.0-4.0); MEAN CORPUSCULAR HGB 27.5 pg (27.0-31.0); MEAN PLATELET VOLUME 9.9 fl (9.6-12.3); MONO # 0.5 10*3/uL (0.1-1.0); MONO % 6.2 % (3.0-9.0); NEUT # 5.4 10*3/uL (2.3-7.9); NEUT % 74.0 % (47.0-73.0); NUCLEATED RED BLOOD CELL 0.0 % (0.0-0.0); NUCLEATED RED BLOOD CELL 0.0 10*3/uL (0.0-0.0); PLATELET COUNT AUTOMATED 146 10*3/uL (130-400); RED CELL DISTRI WIDTH 16.1 % (0-14.5)
[2025-03-05 08:03] LABS: MEAN CELL VOLUME 97.2 fl (80.0-94.0)
[2025-03-05 08:08] LABS: ACT PARTIAL THROMBO TIME 20.8 SECONDS (20.0-32.1)
[2025-03-05 08:14] LABS: VENOUS BLOOD GAS O2 SAT 72.8 % (60.0-85.0)
[2025-03-05 08:17] LABS: BUN 21 mg/dl (9-23)
[2025-03-05 08:39] VITALS: BP 102/61
[2025-03-05] MEDS ORDERED: AZITHROMYCIN 250 ML IV ONE (09:35)
[2025-03-05 13:18] VITALS: BP 125/82
[2025-03-05] MEDS ORDERED: Albuterol Sulf/Ipratropium 3 ML VIAL NEB SCH (14:30)
[2025-03-05 15:54] LABS: ABG BASE EXCESS 8.3 mmol/L (-2.0-3.0); ABG O2 SATURATION 96.4 % (94.0-98.0); ARTERIAL BLOOD GAS PH 7.401 (7.350-7.450); ARTERIAL BLOOD GAS PO2 83.7 mmHg (83.0-108.0)
[2025-03-05 16:19] VITALS: BP 129/85
[2025-03-05 17:00] VITALS: BP 156/81
[2025-03-05 20:00] VITALS: BP 152/69
[2025-03-05] MEDS ORDERED: SINGULAIR10 M1 PO (20:09)
[2025-03-05] MEDS ORDERED: REMERON15 M2 PO (20:10)
[2025-03-05] MEDS ORDERED: EXELON1 EAC1 T (20:11)
[2025-03-05] MEDS ORDERED: LOSARTAN POTAS100 M1 PO (20:13)
[2025-03-05] MEDS ORDERED: HYDROCHLOROTHIA25 M1 PO (20:13)
[2025-03-05] MEDS ORDERED: IBUPROFEN 800 MG TAB PO PRN (20:25)
[2025-03-05] MEDS ORDERED: BUDESONIDE 0.5 MG AMP NEB SCH (20:44)
[2025-03-05] MEDS ORDERED: GABAPENTIN 800 MG TAB PO SCH (22:00)
[2025-03-05] MEDS ORDERED: SIMVASTATIN 20 MG TAB PO SCH (22:00)
[2025-03-05] MEDS ORDERED: BUPRENORPHINE HCL/NALOXONE 8 MG-2 MG SL TABLET SL SCH (22:00)
[2025-03-05] MEDS ORDERED: Mirtazapine 15 MG TAB PO SCH (22:00)
[2025-03-06] VITALS: BP 125/73
[2025-03-06] MEDS ORDERED: OMEPRAZOLE 20 MG CAP PO SCH (06:00)
[2025-03-06 06:06] LABS: BASO # 0.0 10*3/uL (0.0-0.1); BASO % 0.0 % (0.0-1.0); EOS # 0.0 10*3/uL (0.0-0.4); EOS % 0.0 % (1.0-4.0); MEAN CORPUSCULAR HGB 27.7 pg (27.0-31.0); MEAN PLATELET VOLUME 10.2 fl (9.6-12.3); MONO # 0.2 10*3/uL (0.1-1.0); MONO % 3.8 % (3.0-9.0); NEUT # 3.7 10*3/uL (2.3-7.9); NEUT % 82.0 % (47.0-73.0); NUCLEATED RED BLOOD CELL 0.0 % (0.0-0.0); NUCLEATED RED BLOOD CELL 0.0 10*3/uL (0.0-0.0); PLATELET COUNT AUTOMATED 142 10*3/uL (130-400); RED CELL DISTRI WIDTH 15.6 % (0-14.5)
[2025-03-06 06:08] LABS: BUN 16 mg/dl (9-23); SGPT/ALT 15 U/L (5-49)
[2025-03-06 06:54] LABS: MEAN CELL VOLUME 93.7 fl (80.0-94.0)
[2025-03-06 08:00] VITALS: BP 146/80
[2025-03-06 08:53] LABS: ABG BASE EXCESS 2.6 mmol/L (-2.0-3.0); ABG O2 SATURATION 98.2 % (94.0-98.0); ARTERIAL BLOOD GAS PH 7.354 (7.350-7.450); ARTERIAL BLOOD GAS PO2 110.5 mmHg (83.0-108.0)
[2025-03-06] MEDS ORDERED: AZITHROMYCIN 250 ML IV SCH (09:00)
[2025-03-06] MEDS ORDERED: Rivastigmine Tartrate 9.5 MG/24 HR PATCH T SCH (10:00)
[2025-03-06] MEDS ORDERED: Cholecalciferol 2,000 UNIT TABLET (50 MCG) PO SCH (10:00)
[2025-03-06] MEDS ORDERED: hydroCHLOROthiazide 25 MG TAB PO SCH (10:00)
[2025-03-06] MEDS ORDERED: RIVAROXABAN 20 MG TAB PO SCH (10:00)
[2025-03-06 12:00] VITALS: BP 121/76
[2025-03-06 16:00] VITALS: BP 117/62
[2025-03-06 20:00] VITALS: BP 107/61
[2025-03-07] VITALS: BP 112/71
[2025-03-07 08:00] VITALS: BP 122/75
[2025-03-07 12:00] VITALS: BP 109/75
[2025-03-07 16:00] VITALS: BP 123/75
[2025-03-07 20:00] VITALS: BP 116/66
[2025-03-08] VITALS: BP 134/90
[2025-03-08 06:42] LABS: BASO # 0.0 10*3/uL (0.0-0.1); BASO % 0.0 % (0.0-1.0); EOS # 0.0 10*3/uL (0.0-0.4); EOS % 0.0 % (1.0-4.0); MEAN CELL VOLUME 94.3 fl (80.0-94.0); MEAN CORPUSCULAR HGB 27.9 pg (27.0-31.0); MEAN PLATELET VOLUME 9.8 fl (9.6-12.3); MONO # 0.4 10*3/uL (0.1-1.0); MONO % 5.8 % (3.0-9.0); NEUT # 5.6 10*3/uL (2.3-7.9); NEUT % 83.0 % (47.0-73.0); NUCLEATED RED BLOOD CELL 0.0 % (0.0-0.0); NUCLEATED RED BLOOD CELL 0.0 10*3/uL (0.0-0.0); PLATELET COUNT AUTOMATED 166 10*3/uL (130-400); RED CELL DISTRI WIDTH 15.8 % (0-14.5)
[2025-03-08 07:09] LABS: BUN 13 mg/dl (9-23); SGPT/ALT 22 U/L (5-49)
[2025-03-08 07:35] LABS: ABG O2 SATURATION 98.7 % (94.0-98.0); ARTERIAL BLOOD GAS PH 7.398 (7.350-7.450); ARTERIAL BLOOD GAS PO2 129.0 mmHg (83.0-108.0)
[2025-03-08 07:40] LABS: ABG BASE EXCESS 8.0 mmol/L (-2.0-3.0)
[2025-03-08 08:00] VITALS: BP 118/76
[2025-03-08 12:00] VITALS: BP 93/72
[2025-03-08 16:00] VITALS: BP 101/60
== END 2025-03-08 19:50 | disposition left against medical advice (07) | DRG 189 ==
LOC: ED 06:32 → 4E 10:26 → EDHOLD 10:26 → 4E 15:43
PROVIDERS: Internal Medicine; ADMIT Internal Medicine; ATTEND Internal Medicine
DX: J96.21 Acute and chronic respiratory failure with hypoxia (principal); J18.9 Pneumonia, unspecified organism; J44.1 Chronic obstructive pulmonary disease with (acute) exacerbation; J44.0 Chronic obstructive pulmonary disease with (acute) lower respiratory infection; I48.92 Unspecified atrial flutter; F32.9 Major depressive disorder, single episode, unspecified; J96.22 Acute and chronic respiratory failure with hypercapnia; D53.9 Nutritional anemia, unspecified; F41.9 Anxiety disorder, unspecified; I48.91 Unspecified atrial fibrillation; K21.9 Gastro-esophageal reflux disease without esophagitis; F63.81 Intermittent explosive disorder; I10 Essential (primary) hypertension; F19.11 Other psychoactive substance abuse, in remission; E55.9 Vitamin D deficiency, unspecified; K76.0 Fatty (change of) liver, not elsewhere classified; F51.01 Primary insomnia; E78.5 Hyperlipidemia, unspecified; F03.90 Unspecified dementia, unspecified severity, without behavioral disturbance, psychotic disturbance, mood disturbance, and anxiety; Z53.29 Procedure and treatment not carried out because of patient's decision for other reasons; Z88.2 Allergy status to sulfonamides; Z88.8 Allergy status to other drugs, medicaments and biological substances; Z91.09 Other allergy status, other than to drugs and biological substances; Z79.899 Other long term (current) drug therapy; Z79.01 Long term (current) use of anticoagulants; Z79.2 Long term (current) use of antibiotics; Z95.0 Presence of cardiac pacemaker; Z87.891 Personal history of nicotine dependence; Z87.440 Personal history of urinary (tract) infections; Z82.49 Family history of ischemic heart disease and other diseases of the circulatory system; Z83.3 Family history of diabetes mellitus; Z80.8 Family history of malignant neoplasm of other organs or systems

== ENCOUNTER 2025-03-22 12:48 | Emergency (ER) | payer OTHER ==
[~2025-03-22] VITALS: Ht 175.2 cm; Wt 78.0 kg
[~2025-03-22 12:48] MED LIST changes: +EXELON1 EAC1 T; +HYDROCHLOROTHIA25 M1 PO; +LOSARTAN POTAS100 M1 PO; +REMERON15 M2 PO; +SINGULAIR10 M1 PO
[2025-03-22 12:53] VITALS: BP 102/69
[2025-03-22] MEDS ORDERED: SODIUM CHLORIDE 0.9% 1,000 ML IV ONE (13:50)
== END 2025-03-22 14:37 | disposition short-term general hospital (02) ==
LOC: ED 12:48
DX: T20.20XA Burn of second degree of head, face, and neck, unspecified site, initial encounter (principal); T20.24XA Burn of second degree of nose (septum), initial encounter; T20.22XA Burn of second degree of lip(s), initial encounter; T23.102A Burn of first degree of left hand, unspecified site, initial encounter; T23.101A Burn of first degree of right hand, unspecified site, initial encounter; J44.9 Chronic obstructive pulmonary disease, unspecified; I48.91 Unspecified atrial fibrillation; X08.8XXA Exposure to other specified smoke, fire and flames, initial encounter; Y93.89 Activity, other specified; Y92.89 Other specified places as the place of occurrence of the external cause; Y99.8 Other external cause status

== ENCOUNTER 2025-04-14 19:30 | Inpatient (IN) | payer OTHER ==
[~2025-04-14] VITALS: Ht 175.2 cm; Wt 68.9 kg
[2025-04-14 19:40] VITALS: BP 104/66
[2025-04-14 19:57] LABS: BASO # 0.0 10*3/uL (0.0-0.1); BASO % 0.4 % (0.0-1.0); EOS # 0.1 10*3/uL (0.0-0.4); EOS % 1.3 % (1.0-4.0); MEAN CELL VOLUME 87.8 fl (80.0-94.0); MEAN CORPUSCULAR HGB 27.2 pg (27.0-31.0); MEAN PLATELET VOLUME 10.0 fl (9.6-12.3); MONO # 0.3 10*3/uL (0.1-1.0); MONO % 4.1 % (3.0-9.0); NEUT # 6.2 10*3/uL (2.3-7.9); NEUT % 77.0 % (47.0-73.0); NUCLEATED RED BLOOD CELL 0.0 % (0.0-0.0); NUCLEATED RED BLOOD CELL 0.0 10*3/uL (0.0-0.0); PLATELET COUNT AUTOMATED 170 10*3/uL (130-400); RED CELL DISTRI WIDTH 14.6 % (0-14.5)
[2025-04-14 20:29] LABS: BUN 15 mg/dl (9-23)
[2025-04-14] MEDS ORDERED: MAGNESIUM SULFATE 100 ML IV ONE (20:55)
[2025-04-14] MEDS ORDERED: POTASSIUM CHLORIDE 20 MEQ TAB PO ONE (20:55)
[2025-04-14] MEDS ORDERED: Albuterol Sulf/Ipratropium 3 ML VIAL NEB ONE (22:20)
[2025-04-14 22:33] VITALS: BP 98/69
[2025-04-15] VITALS (8 sets, daily range): BP systolic 95–118; BP diastolic 61–81
[2025-04-15] MEDS ORDERED: GABAPENTIN800 MG PO (00:12)
[2025-04-15] MEDS ORDERED: METHYLPRED-DP4 MG PO (00:13)
[2025-04-15] MEDS ORDERED: BUPRENORPHINE-1 EAC1 SL (00:13)
[2025-04-15] MEDS ORDERED: MUCUS RELIEF600 MG PO (00:13)
[2025-04-15] MEDS ORDERED: ADVAIR 250/501 EA INH (00:14)
[2025-04-15] MEDS ORDERED: ALBUTEROL SULFATE HF INH (00:14)
[2025-04-15] MEDS ORDERED: ARIPIPRAZOLE10 MG PO (00:15)
[2025-04-15] MEDS ORDERED: ATORVASTATIN CA20 M1 PO (00:16)
[2025-04-15] MEDS ORDERED: CITALOPRAM40 MG PO (00:16)
[2025-04-15] MEDS ORDERED: MELATONIN5 M7 PO (00:17)
[2025-04-15] MEDS ORDERED: RIVASTIGMINE1 EAC1 TD (00:17)
[2025-04-15] MEDS ORDERED: TRELEGY ELLIPT1 EACH INH (00:18)
[2025-04-15] MEDS ORDERED: IBU800 M1 PO (00:19)
[2025-04-15] MEDS ORDERED: 24 HOUR ALLERG9.9 ML NAS (00:20)
[2025-04-15] MEDS ORDERED: Albuterol Sulf/Ipratropium 3 ML VIAL NEB SCH (05:10)
[2025-04-15] MEDS ORDERED: ACETAMINOPHEN 325 MG TAB PO PRN (05:10)
[2025-04-15] MEDS ORDERED: BISACODYL 5 MG TAB PO PRN (05:10)
[2025-04-15] MEDS ORDERED: ACETAMINOPHEN 650 MG SUPP R PRN (05:10)
[2025-04-15] MEDS ORDERED: BISACODYL 10 MG SUPP R PRN (05:10)
[2025-04-15] MEDS ORDERED: Ondansetron Hydrochloride 4 MG/2 ML VIAL IV PRN (05:10)
[2025-04-15] MEDS ORDERED: Acetaminophen/Hydrocodone 5 MG/325 MG TABLET PO PRN (05:10)
[2025-04-15 06:03] LABS: MEAN CELL VOLUME 88.9 fl (80.0-94.0); MEAN CORPUSCULAR HGB 27.3 pg (27.0-31.0); MEAN PLATELET VOLUME 10.3 fl (9.6-12.3); NUCLEATED RED BLOOD CELL 0.0 % (0.0-0.0); NUCLEATED RED BLOOD CELL 0.0 10*3/uL (0.0-0.0); PLATELET COUNT AUTOMATED 155 10*3/uL (130-400); RED CELL DISTRI WIDTH 14.6 % (0-14.5)
[2025-04-15 06:06] LABS: MANUAL DIFF REFLEX YES
[2025-04-15 06:46] LABS: BUN 13 mg/dl (9-23); SGPT/ALT 28 U/L (5-49)
[2025-04-15 07:32] LABS: PLATELET SUFFICIENCY NORMAL (NORMAL)
[2025-04-15] MEDS ORDERED: CITALOPRAM 20 MG TAB PO SCH (10:00)
[2025-04-15] MEDS ORDERED: GUAIFENESIN 600 MG TAB ER PO SCH (10:00)
[2025-04-15] MEDS ORDERED: Cholecalciferol 2,000 UNIT TABLET (50 MCG) PO SCH (10:00)
[2025-04-15] MEDS ORDERED: BUPRENORPHINE HCL/NALOXONE 8 MG-2 MG SL TABLET SL SCH (10:00)
[2025-04-15] MEDS ORDERED: Rivastigmine Tartrate 9.5 MG/24 HR PATCH T SCH (10:00)
[2025-04-15] MEDS ORDERED: ARIPiprazole 5 MG TAB PO SCH (10:00)
[2025-04-15] MEDS ORDERED: RIVAROXABAN 20 MG TAB PO SCH (10:00)
[2025-04-15] MEDS ORDERED: GABAPENTIN 800 MG TAB PO SCH (14:00)
[2025-04-15] MEDS ORDERED: ATORVASTATIN CALCIUM 20 MG TAB PO SCH (22:00)
[2025-04-16] VITALS: BP 106/53
[2025-04-16 05:33] LABS: BUN 18 mg/dl (9-23); SGPT/ALT 22 U/L (5-49)
[2025-04-16] MEDS ORDERED: OMEPRAZOLE 20 MG CAP PO SCH (06:00)
[2025-04-16 06:02] LABS: BASO # 0.0 10*3/uL (0.0-0.1); BASO % 0.1 % (0.0-1.0); EOS # 0.0 10*3/uL (0.0-0.4); EOS % 0.0 % (1.0-4.0); MEAN CELL VOLUME 89.7 fl (80.0-94.0); MEAN CORPUSCULAR HGB 27.4 pg (27.0-31.0); MEAN PLATELET VOLUME 10.6 fl (9.6-12.3); MONO # 0.5 10*3/uL (0.1-1.0); MONO % 5.1 % (3.0-9.0); NEUT # 8.4 10*3/uL (2.3-7.9); NEUT % 84.8 % (47.0-73.0); NUCLEATED RED BLOOD CELL 0.0 % (0.0-0.0); NUCLEATED RED BLOOD CELL 0.0 10*3/uL (0.0-0.0); PLATELET COUNT AUTOMATED 178 10*3/uL (130-400); RED CELL DISTRI WIDTH 14.7 % (0-14.5)
[2025-04-16 08:00] VITALS: BP 102/69
[2025-04-16 12:00] VITALS: BP 116/68
[2025-04-16] MEDS ORDERED: FUROSEMIDE 40 MG/4 ML VIAL IV SCH (13:05)
[2025-04-16 16:00] VITALS: BP 115/71
[2025-04-16 20:00] VITALS: BP 110/89; BP 112/79
[2025-04-17] VITALS: BP 102/60; BP 130/68; BP 92/51
[2025-04-17 06:05] LABS: BUN 17 mg/dl (9-23)
[2025-04-17 06:13] LABS: BASO # 0.0 10*3/uL (0.0-0.1); BASO % 0.0 % (0.0-1.0); EOS # 0.0 10*3/uL (0.0-0.4); EOS % 0.0 % (1.0-4.0); MEAN CELL VOLUME 91.1 fl (80.0-94.0); MEAN CORPUSCULAR HGB 27.4 pg (27.0-31.0); MEAN PLATELET VOLUME 10.2 fl (9.6-12.3); MONO # 0.6 10*3/uL (0.1-1.0); MONO % 6.3 % (3.0-9.0); NEUT # 7.7 10*3/uL (2.3-7.9); NEUT % 83.3 % (47.0-73.0); NUCLEATED RED BLOOD CELL 0.0 % (0.0-0.0); NUCLEATED RED BLOOD CELL 0.0 10*3/uL (0.0-0.0); PLATELET COUNT AUTOMATED 212 10*3/uL (130-400); RED CELL DISTRI WIDTH 14.6 % (0-14.5)
[2025-04-17 08:00] VITALS: BP 113/73
[2025-04-17] MEDS ORDERED: FUROSEMIDE 40 MG/4 ML VIAL IV SCH (10:00)
[2025-04-17 12:00] VITALS: BP 119/93
[2025-04-17] MEDS ORDERED: CROMOLYN SODIUM NAS PRN (14:25)
[2025-04-17 16:00] VITALS: BP 103/70
[2025-04-17 20:00] VITALS: BP 107/56
[2025-04-18] VITALS: BP 125/76
[2025-04-18] MEDS ORDERED: IBUPROFEN 800 MG TAB PO PRN (07:50)
[2025-04-18 08:00] VITALS: BP 120/74
[2025-04-18] MEDS ORDERED: FUROSEMIDE 40 MG/4 ML VIAL IV SCH (10:00)
[2025-04-18 12:00] VITALS: BP 113/70
[2025-04-18 16:00] VITALS: BP 115/58
[2025-04-18] MEDS ORDERED: AQUAPHOR OINTMENT Base 50 GM TUBE T SCH (18:50)
[2025-04-18] MEDS ORDERED: FOAM BANDAGE HEEL T ONE (19:06)
[2025-04-18 20:00] VITALS: BP 116/68
[2025-04-18] MEDS ORDERED: Sulfamethoxazole/Trimethopri 1 TAB TAB PO SCH (22:00)
[2025-04-18] MEDS ORDERED: MICONAZOLE NITRATE 2% 75 GM BOT T SCH (22:00)
[2025-04-18] MEDS ORDERED: CEFUROXIME AXE500 MG PO (23:00)
[2025-04-18] MEDS ORDERED: BACTRIM DS 8001 EACH PO (23:00)
[2025-04-18] MEDS ORDERED: MEDROL DOSEPAK4 MG PO (23:04)
[2025-04-19] VITALS: BP 131/72
[2025-04-19 08:00] VITALS: BP 127/81
[2025-04-19] MEDS ORDERED: Amoxicillin/Clavulanate Pota 875 MG TAB PO SCH (10:20)
[2025-04-19 12:00] VITALS: BP 135/76
[2025-04-19] MEDS ORDERED: AMOX-CLAV 875-1 EACH PO (14:11)
[2025-04-19] MEDS ORDERED: LASIX20 MG PO (14:11)
[2025-04-20] MEDS ORDERED: predniSONE 10 MG TAB PO SCH (10:00)
== END 2025-04-19 14:45 | disposition home or self-care (01) | DRG 603 ==
LOC: ED 19:30 → 4E 04-15 04:58 → EDHOLD 04-15 04:58 → 4E 04-15 05:11
PROVIDERS: Internal Medicine; Student in an Organized Health Care Education/Training Program; ADMIT Internal Medicine; ATTEND Internal Medicine
DX: L03.115 Cellulitis of right lower limb (principal); J44.1 Chronic obstructive pulmonary disease with (acute) exacerbation; J96.11 Chronic respiratory failure with hypoxia; E44.0 Moderate protein-calorie malnutrition; E87.1 Hypo-osmolality and hyponatremia; I48.21 Permanent atrial fibrillation; L03.90 Cellulitis, unspecified; E87.6 Hypokalemia; J20.9 Acute bronchitis, unspecified; F41.9 Anxiety disorder, unspecified; K21.9 Gastro-esophageal reflux disease without esophagitis; F32.9 Major depressive disorder, single episode, unspecified; E55.9 Vitamin D deficiency, unspecified; B95.62 Methicillin resistant Staphylococcus aureus infection as the cause of diseases classified elsewhere; Z87.891 Personal history of nicotine dependence; Z82.49 Family history of ischemic heart disease and other diseases of the circulatory system; Z86.19 Personal history of other infectious and parasitic diseases; Z68.22 Body mass index [BMI] 22.0-22.9, adult

== ENCOUNTER 2025-04-24 00:46 | Inpatient (IN) | payer OTHER ==
[2025-04-24] VITALS (7 sets, daily range): BP systolic 98–120; BP diastolic 67–79
[~2025-04-24] VITALS: Ht 175.2 cm; Wt 78.9 kg
[~2025-04-24 00:46] MED LIST changes: +24 HOUR ALLERG9.9 ML NAS; +ADVAIR 250/501 EA INH; +ALBUTEROL SULFATE HF INH; +AMOX-CLAV 875-1 EACH PO; +ARIPIPRAZOLE10 MG PO; +ATORVASTATIN CA20 M1 PO; +BACTRIM DS 8001 EACH PO; +BUPRENORPHINE-1 EAC1 SL; +CITALOPRAM40 MG PO; +GABAPENTIN800 MG PO; +IBU800 M1 PO; +METHYLPRED-DP4 MG PO; +MUCUS RELIEF600 MG PO; +RIVASTIGMINE1 EAC1 TD; +TRELEGY ELLIPT1 EACH INH
[2025-04-24 01:24] LABS: BASO # 0.0 10*3/uL (0.0-0.1); BASO % 0.1 % (0.0-1.0); EOS # 0.2 10*3/uL (0.0-0.4); EOS % 1.1 % (1.0-4.0); MEAN CELL VOLUME 89.9 fl (80.0-94.0); MEAN CORPUSCULAR HGB 26.8 pg (27.0-31.0); MEAN PLATELET VOLUME 9.1 fl (9.6-12.3); MONO # 1.0 10*3/uL (0.1-1.0); MONO % 6.4 % (3.0-9.0); NEUT # 9.6 10*3/uL (2.3-7.9); NEUT % 64.2 % (47.0-73.0); NUCLEATED RED BLOOD CELL 0.0 % (0.0-0.0); NUCLEATED RED BLOOD CELL 0.0 10*3/uL (0.0-0.0); PLATELET COUNT AUTOMATED 232 10*3/uL (130-400); RED CELL DISTRI WIDTH 14.7 % (0-14.5)
[2025-04-24 01:40] LABS: ACT PARTIAL THROMBO TIME 24.5 SECONDS (20.0-32.1)
[2025-04-24 01:45] LABS: BUN 19 mg/dl (9-23)
[2025-04-24] MEDS ORDERED: AZITHROMYCIN 250 ML IV ONE (02:05)
[2025-04-24] MEDS ORDERED: Albuterol Sulf/Ipratropium 3 ML VIAL NEB ONE (02:05)
[2025-04-24] MEDS ORDERED: Albuterol Sulf/Ipratropium 3 ML VIAL NEB SCH (02:35)
[2025-04-24] MEDS ORDERED: BUDESONIDE 0.5 MG AMP NEB SCH (02:50)
[2025-04-24] MEDS ORDERED: Pantoprazole Sodium 20 MG TAB PO SCH (06:00)
[2025-04-24] MEDS ORDERED: CITALOPRAM 20 MG TAB PO SCH (10:00)
[2025-04-24] MEDS ORDERED: BUPRENORPHINE HCL/NALOXONE 8 MG-2 MG SL TABLET SL SCH ×2 (10:00→22:00)
[2025-04-24] MEDS ORDERED: FUROSEMIDE 20 MG TAB PO SCH (10:00)
[2025-04-24] MEDS ORDERED: Fluticasone Propionate/Salmeterol 250/50 diskus INH SCH (10:00)
[2025-04-24] MEDS ORDERED: RIVAROXABAN 20 MG TAB PO SCH (10:00)
[2025-04-24] MEDS ORDERED: Rivastigmine Tartrate 9.5 MG/24 HR PATCH T SCH (10:00)
[2025-04-24] MEDS ORDERED: GABAPENTIN 800 MG TAB PO SCH ×2 (10:00→14:00)
[2025-04-24] MEDS ORDERED: GUAIFENESIN 600 MG TAB ER PO SCH (10:00)
[2025-04-24] MEDS ORDERED: ARIPiprazole 5 MG TAB PO SCH (10:00)
[2025-04-24] MEDS ORDERED: ATORVASTATIN CALCIUM 20 MG TAB PO SCH (22:00)
[2025-04-25] VITALS: BP 111/59
[2025-04-25 06:42] LABS: BUN 15 mg/dl (9-23); SGPT/ALT 21 U/L (5-49)
[2025-04-25 06:46] LABS: BASO # 0.0 10*3/uL (0.0-0.1); BASO % 0.1 % (0.0-1.0); EOS # 0.0 10*3/uL (0.0-0.4); EOS % 0.0 % (1.0-4.0); MEAN CELL VOLUME 87.9 fl (80.0-94.0); MEAN CORPUSCULAR HGB 27.4 pg (27.0-31.0); MEAN PLATELET VOLUME 10.1 fl (9.6-12.3); MONO # 0.2 10*3/uL (0.1-1.0); MONO % 1.9 % (3.0-9.0); NEUT # 10.9 10*3/uL (2.3-7.9); NEUT % 90.0 % (47.0-73.0); NUCLEATED RED BLOOD CELL 0.0 % (0.0-0.0); NUCLEATED RED BLOOD CELL 0.0 10*3/uL (0.0-0.0); PLATELET COUNT AUTOMATED 187 10*3/uL (130-400); RED CELL DISTRI WIDTH 14.8 % (0-14.5)
[2025-04-25 08:00] VITALS: BP 116/66
[2025-04-25 12:00] VITALS: BP 113/71
== END 2025-04-25 14:43 | disposition left against medical advice (07) | DRG 189 ==
LOC: ED 00:46 → EDHOLD 02:04 → 4E 02:04
PROVIDERS: Emergency Medicine; ADMIT Internal Medicine; ATTEND Internal Medicine
DX: J96.00 Acute respiratory failure, unspecified whether with hypoxia or hypercapnia (principal); J44.1 Chronic obstructive pulmonary disease with (acute) exacerbation; F41.9 Anxiety disorder, unspecified; E78.5 Hyperlipidemia, unspecified; B19.20 Unspecified viral hepatitis C without hepatic coma; I48.91 Unspecified atrial fibrillation; F32.9 Major depressive disorder, single episode, unspecified; K21.9 Gastro-esophageal reflux disease without esophagitis; Z82.49 Family history of ischemic heart disease and other diseases of the circulatory system; Z79.899 Other long term (current) drug therapy

== ENCOUNTER 2025-05-05 14:54 | Inpatient (IN) | payer OTHER ==
[~2025-05-05] VITALS: Ht 175.3 cm; Wt 78.6 kg
[2025-05-05] MEDS ORDERED: AZITHROMYCIN 250 MG TAB PO ONE (15:00)
[2025-05-05] MEDS ORDERED: MAGNESIUM SULFATE 50 ML IV ONE (15:00)
[2025-05-05 15:01] VITALS: BP 103/63
[2025-05-05 15:16] LABS: BASO # 0.0 10*3/uL (0.0-0.1); BASO % 0.2 % (0.0-1.0); EOS # 0.1 10*3/uL (0.0-0.4); EOS % 1.3 % (1.0-4.0); MEAN CELL VOLUME 90.5 fl (80.0-94.0); MEAN CORPUSCULAR HGB 27.1 pg (27.0-31.0); MEAN PLATELET VOLUME 9.4 fl (9.6-12.3); MONO # 0.3 10*3/uL (0.1-1.0); MONO % 7.2 % (3.0-9.0); NEUT # 3.3 10*3/uL (2.3-7.9); NEUT % 70.8 % (47.0-73.0); NUCLEATED RED BLOOD CELL 0.0 % (0.0-0.0); NUCLEATED RED BLOOD CELL 0.0 10*3/uL (0.0-0.0); PLATELET COUNT AUTOMATED 118 10*3/uL (130-400); RED CELL DISTRI WIDTH 15.2 % (0-14.5)
[2025-05-05 15:44] LABS: BUN 6 mg/dl (9-23)
[2025-05-05] MEDS ORDERED: FUROSEMIDE 40 MG/4 ML VIAL IV ONE (16:10)
[2025-05-05] MEDS ORDERED: Albuterol Sulf/Ipratropium 3 ML VIAL NEB SCH (16:35)
[2025-05-05] MEDS ORDERED: Pantoprazole Sodium 20 MG TAB PO SCH (18:00)
[2025-05-05 20:25] VITALS: BP 111/68
[2025-05-05] MEDS ORDERED: BUPRENORPHINE HCL/NALOXONE 8 MG-2 MG SL TABLET SL SCH (22:00)
[2025-05-05] MEDS ORDERED: GUAIFENESIN 600 MG TAB ER PO SCH (22:00)
[2025-05-05] MEDS ORDERED: GABAPENTIN 800 MG TAB PO SCH (22:00)
[2025-05-05] MEDS ORDERED: ATORVASTATIN CALCIUM 20 MG TAB PO SCH (22:00)
[2025-05-06 05:28] LABS: BUN 8 mg/dl (9-23); SGPT/ALT 13 U/L (5-49)
[2025-05-06 06:00] LABS: BASO # 0.0 10*3/uL (0.0-0.1); BASO % 0.0 % (0.0-1.0); EOS # 0.0 10*3/uL (0.0-0.4); EOS % 0.0 % (1.0-4.0); MEAN CELL VOLUME 90.2 fl (80.0-94.0); MEAN CORPUSCULAR HGB 27.2 pg (27.0-31.0); MEAN PLATELET VOLUME 10.6 fl (9.6-12.3); MONO # 0.1 10*3/uL (0.1-1.0); MONO % 1.3 % (3.0-9.0); NEUT # 3.8 10*3/uL (2.3-7.9); NEUT % 84.2 % (47.0-73.0); NUCLEATED RED BLOOD CELL 0.0 % (0.0-0.0); NUCLEATED RED BLOOD CELL 0.0 10*3/uL (0.0-0.0); PLATELET COUNT AUTOMATED 136 10*3/uL (130-400); RED CELL DISTRI WIDTH 15.0 % (0-14.5)
[2025-05-06 08:00] VITALS: BP 99/66
[2025-05-06] MEDS ORDERED: ARIPiprazole 5 MG TAB PO SCH (10:00)
[2025-05-06] MEDS ORDERED: Rivastigmine Tartrate 9.5 MG/24 HR PATCH T SCH (10:00)
[2025-05-06] MEDS ORDERED: RIVAROXABAN 20 MG TAB PO SCH (10:00)
[2025-05-06] MEDS ORDERED: CITALOPRAM 20 MG TAB PO SCH (10:00)
[2025-05-06] MEDS ORDERED: FUROSEMIDE 40 MG/4 ML VIAL IV SCH (10:00)
[2025-05-06 12:00] VITALS: BP 107/62
[2025-05-06] MEDS ORDERED: MUPIROCIN 15 GM TUBE T SCH (12:00)
[2025-05-06 16:00] VITALS: BP 102/70
[2025-05-06 20:00] VITALS: BP 106/84; BP 125/75
[2025-05-07] VITALS: BP 113/76
[2025-05-07 05:45] LABS: BUN 14 mg/dl (9-23); SGPT/ALT 13 U/L (5-49)
[2025-05-07 06:04] LABS: BASO # 0.0 10*3/uL (0.0-0.1); BASO % 0.0 % (0.0-1.0); EOS # 0.0 10*3/uL (0.0-0.4); EOS % 0.0 % (1.0-4.0); MEAN CELL VOLUME 89.7 fl (80.0-94.0); MEAN CORPUSCULAR HGB 27.4 pg (27.0-31.0); MEAN PLATELET VOLUME 10.0 fl (9.6-12.3); MONO # 0.4 10*3/uL (0.1-1.0); MONO % 4.1 % (3.0-9.0); NEUT # 8.3 10*3/uL (2.3-7.9); NEUT % 89.0 % (47.0-73.0); NUCLEATED RED BLOOD CELL 0.0 % (0.0-0.0); NUCLEATED RED BLOOD CELL 0.0 10*3/uL (0.0-0.0); PLATELET COUNT AUTOMATED 142 10*3/uL (130-400); RED CELL DISTRI WIDTH 15.2 % (0-14.5)
[2025-05-07 08:00] VITALS: BP 142/75
[2025-05-07 12:00] VITALS: BP 145/79
[2025-05-07 16:00] VITALS: BP 134/80
[2025-05-07 20:00] VITALS: BP 135/91
[2025-05-07] MEDS ORDERED: ACETAMINOPHEN 325 MG TAB PO PRN (22:15)
[2025-05-07] MEDS ORDERED: IBUPROFEN 600 MG TAB PO PRN (22:15)
[2025-05-08] VITALS: BP 136/60
[2025-05-08 08:00] VITALS: BP 135/80
[2025-05-08 12:00] VITALS: BP 141/89
[2025-05-08 16:00] VITALS: BP 150/91
[2025-05-08 20:00] VITALS: BP 154/84
[2025-05-08 20:51] LABS: ABG BASE EXCESS 10.7 mmol/L (-2.0-3.0); ABG O2 SATURATION 98.1 % (94.0-98.0); ARTERIAL BLOOD GAS PH 7.277 (7.350-7.450); ARTERIAL BLOOD GAS PO2 129.8 mmHg (83.0-108.0)
[2025-05-09] VITALS: BP 139/87
[2025-05-09 05:09] LABS: BUN 18 mg/dl (9-23); SGPT/ALT 13 U/L (5-49)
[2025-05-09 06:31] LABS: MEAN CELL VOLUME 92.3 fl (80.0-94.0); MEAN CORPUSCULAR HGB 27.2 pg (27.0-31.0); MEAN PLATELET VOLUME 9.4 fl (9.6-12.3); NUCLEATED RED BLOOD CELL 0.0 % (0.0-0.0); NUCLEATED RED BLOOD CELL 0.0 10*3/uL (0.0-0.0); PLATELET COUNT AUTOMATED 155 10*3/uL (130-400); RED CELL DISTRI WIDTH 15.2 % (0-14.5)
[2025-05-09 06:32] LABS: MANUAL DIFF REFLEX YES
[2025-05-09 07:03] LABS: PLATELET SUFFICIENCY NORMAL (NORMAL)
[2025-05-09 07:09] LABS: ABG O2 SATURATION 96.8 % (94.0-98.0); ARTERIAL BLOOD GAS PH 7.256 (7.350-7.450); ARTERIAL BLOOD GAS PO2 102.9 mmHg (83.0-108.0)
[2025-05-09 07:14] LABS: ABG BASE EXCESS 9.6 mmol/L (-2.0-3.0)
[2025-05-09 08:00] VITALS: BP 151/79
[2025-05-09] MEDS ORDERED: Water, Sterile 10 ML VIAL ONE (11:07)
[2025-05-09 12:00] VITALS: BP 153/78
[2025-05-09 12:11] LABS: ABG O2 SATURATION 97.5 % (94.0-98.0); ARTERIAL BLOOD GAS PH 7.317 (7.350-7.450); ARTERIAL BLOOD GAS PO2 106.4 mmHg (83.0-108.0)
[2025-05-09 12:17] LABS: ABG BASE EXCESS 14.4 mmol/L (-2.0-3.0)
[2025-05-09 16:00] VITALS: BP 105/46
[2025-05-09 20:00] VITALS: BP 137/85
[2025-05-10] VITALS: BP 137/86
[2025-05-10 06:17] LABS: BUN 21 mg/dl (9-23); SGPT/ALT 14 U/L (5-49)
[2025-05-10 06:19] LABS: MEAN CELL VOLUME 94.3 fl (80.0-94.0); MEAN CORPUSCULAR HGB 26.7 pg (27.0-31.0); MEAN PLATELET VOLUME 9.9 fl (9.6-12.3); NUCLEATED RED BLOOD CELL 0.0 % (0.0-0.0); NUCLEATED RED BLOOD CELL 0.0 10*3/uL (0.0-0.0); PLATELET COUNT AUTOMATED 183 10*3/uL (130-400); RED CELL DISTRI WIDTH 15.0 % (0-14.5)
[2025-05-10 06:25] LABS: MANUAL DIFF REFLEX YES
[2025-05-10 06:51] LABS: ABG O2 SATURATION 97.9 % (94.0-98.0); ARTERIAL BLOOD GAS PH 7.348 (7.350-7.450); ARTERIAL BLOOD GAS PO2 113.3 mmHg (83.0-108.0)
[2025-05-10 06:55] LABS: ABG BASE EXCESS 13.6 mmol/L (-2.0-3.0)
[2025-05-10 07:03] LABS: PLATELET SUFFICIENCY NORMAL (NORMAL)
[2025-05-10 08:00] VITALS: BP 147/65
[2025-05-10] MEDS ORDERED: Water, Sterile 10 ML VIAL ONE (09:18)
[2025-05-10 12:01] VITALS: BP 136/83
[2025-05-10 16:00] VITALS: BP 149/88
[2025-05-10 20:00] VITALS: BP 156/87
[2025-05-11] VITALS: BP 143/84
[2025-05-11 08:00] VITALS: BP 138/95
[2025-05-11 12:00] VITALS: BP 127/77
[2025-05-11 16:00] VITALS: BP 153/75
[2025-05-11 20:00] VITALS: BP 147/72
[2025-05-12] VITALS: BP 161/91
[2025-05-12 08:00] VITALS: BP 133/77
[2025-05-12 12:00] VITALS: BP 158/77
[2025-05-12 16:00] VITALS: BP 151/76
[2025-05-12 20:00] VITALS: BP 132/82
[2025-05-13] VITALS: BP 138/87
[2025-05-13 05:57] LABS: BUN 18 mg/dl (9-23)
[2025-05-13 06:09] LABS: BASO # 0.0 10*3/uL (0.0-0.1); BASO % 0.1 % (0.0-1.0); EOS # 0.1 10*3/uL (0.0-0.4); EOS % 1.2 % (1.0-4.0); MEAN CELL VOLUME 93.3 fl (80.0-94.0); MEAN CORPUSCULAR HGB 27.7 pg (27.0-31.0); MEAN PLATELET VOLUME 9.4 fl (9.6-12.3); MONO # 0.7 10*3/uL (0.1-1.0); MONO % 8.7 % (3.0-9.0); NEUT # 5.7 10*3/uL (2.3-7.9); NEUT % 70.1 % (47.0-73.0); NUCLEATED RED BLOOD CELL 0.0 % (0.0-0.0); NUCLEATED RED BLOOD CELL 0.0 10*3/uL (0.0-0.0); PLATELET COUNT AUTOMATED 166 10*3/uL (130-400); RED CELL DISTRI WIDTH 15.2 % (0-14.5)
[2025-05-13 08:00] VITALS: BP 140/70
[2025-05-13 12:00] VITALS: BP 137/80
[2025-05-13 16:00] VITALS: BP 140/78
[2025-05-13 20:00] VITALS: BP 147/74
[2025-05-14] VITALS: BP 135/80
[2025-05-14 08:00] VITALS: BP 155/76
[2025-05-14 11:54] VITALS: BP 119/74
[2025-05-14 16:00] VITALS: BP 138/81
[2025-05-14 20:00] VITALS: BP 115/68
[2025-05-14] MEDS ORDERED: FUROSEMIDE 40 MG/4 ML VIAL IV SCH (22:00)
[2025-05-15] VITALS: BP 128/70
[2025-05-15 06:02] LABS: BASO # 0.0 10*3/uL (0.0-0.1); BASO % 0.1 % (0.0-1.0); EOS # 0.1 10*3/uL (0.0-0.4); EOS % 1.2 % (1.0-4.0); MEAN CELL VOLUME 94.8 fl (80.0-94.0); MEAN CORPUSCULAR HGB 27.2 pg (27.0-31.0); MEAN PLATELET VOLUME 9.6 fl (9.6-12.3); MONO # 0.6 10*3/uL (0.1-1.0); MONO % 7.9 % (3.0-9.0); NEUT # 5.1 10*3/uL (2.3-7.9); NEUT % 69.1 % (47.0-73.0); NUCLEATED RED BLOOD CELL 0.0 % (0.0-0.0); NUCLEATED RED BLOOD CELL 0.0 10*3/uL (0.0-0.0); PLATELET COUNT AUTOMATED 172 10*3/uL (130-400); RED CELL DISTRI WIDTH 15.1 % (0-14.5)
[2025-05-15 06:08] LABS: BUN 17 mg/dl (9-23)
[2025-05-15 07:00] LABS: ABG O2 SATURATION 96.7 % (94.0-98.0); ARTERIAL BLOOD GAS PH 7.394 (7.350-7.450); ARTERIAL BLOOD GAS PO2 95.7 mmHg (83.0-108.0)
[2025-05-15 07:03] LABS: ABG BASE EXCESS 16.9 mmol/L (-2.0-3.0)
[2025-05-15 08:00] VITALS: BP 134/75
[2025-05-15 12:00] VITALS: BP 135/77
[2025-05-15] MEDS ORDERED: ACETAZOLAMIDE250 MG PO (12:05)
[2025-05-15] MEDS ORDERED: AMOX-CLAV 875-1 EACH PO (12:06)
== END 2025-05-15 20:28 | disposition home or self-care (01) | DRG 189 ==
LOC: ED 14:54 → EDHOLD 16:14 → 4E 16:14
PROVIDERS: Emergency Medicine; Internal Medicine Critical Care Medicine; ADMIT Internal Medicine; ATTEND Internal Medicine
PROC: 5A09357 Assistance with Respiratory Ventilation, Less than 24 Consecutive Hours, Continuous Positive Airway Pressure (ICD-10-PCS; principal; 2025-05-08)
PROC: 5A09357 Assistance with Respiratory Ventilation, Less than 24 Consecutive Hours, Continuous Positive Airway Pressure (ICD-10-PCS; 2025-05-09)
PROC: 5A09357 Assistance with Respiratory Ventilation, Less than 24 Consecutive Hours, Continuous Positive Airway Pressure (ICD-10-PCS; 2025-05-10)
PROC: 5A09357 Assistance with Respiratory Ventilation, Less than 24 Consecutive Hours, Continuous Positive Airway Pressure (ICD-10-PCS; 2025-05-11)
PROC: 5A09357 Assistance with Respiratory Ventilation, Less than 24 Consecutive Hours, Continuous Positive Airway Pressure (ICD-10-PCS; 2025-05-12)
PROC: 5A09357 Assistance with Respiratory Ventilation, Less than 24 Consecutive Hours, Continuous Positive Airway Pressure (ICD-10-PCS; 2025-05-13)
PROC: 5A09357 Assistance with Respiratory Ventilation, Less than 24 Consecutive Hours, Continuous Positive Airway Pressure (ICD-10-PCS; 2025-05-14)
PROC: 5A09357 Assistance with Respiratory Ventilation, Less than 24 Consecutive Hours, Continuous Positive Airway Pressure (ICD-10-PCS; 2025-05-15)
DX: J96.21 Acute and chronic respiratory failure with hypoxia (principal); J44.1 Chronic obstructive pulmonary disease with (acute) exacerbation; E87.3 Alkalosis; J96.22 Acute and chronic respiratory failure with hypercapnia; J45.901 Unspecified asthma with (acute) exacerbation; F41.9 Anxiety disorder, unspecified; I50.9 Heart failure, unspecified; K21.9 Gastro-esophageal reflux disease without esophagitis; E78.5 Hyperlipidemia, unspecified; F32.9 Major depressive disorder, single episode, unspecified; F03.90 Unspecified dementia, unspecified severity, without behavioral disturbance, psychotic disturbance, mood disturbance, and anxiety; I11.0 Hypertensive heart disease with heart failure; I27.81 Cor pulmonale (chronic); G89.29 Other chronic pain; J20.9 Acute bronchitis, unspecified; B96.20 Unspecified Escherichia coli [E. coli] as the cause of diseases classified elsewhere; I48.91 Unspecified atrial fibrillation; Z83.3 Family history of diabetes mellitus; Z80.9 Family history of malignant neoplasm, unspecified; Z79.01 Long term (current) use of anticoagulants

== ENCOUNTER 2025-05-16 06:48 | Inpatient (IN) | payer OTHER ==
[~2025-05-16] VITALS: Ht 175.2 cm; Wt 86.0 kg
[~2025-05-16 06:48] MED LIST changes: +ACETAZOLAMIDE250 MG PO
[2025-05-16 06:52] VITALS: BP 134/85
[2025-05-16] MEDS ORDERED: Albuterol Sulf/Ipratropium 3 ML VIAL NEB ONE (06:55)
[2025-05-16 07:08] LABS: BASO # 0.0 10*3/uL (0.0-0.1); BASO % 0.1 % (0.0-1.0); EOS # 0.0 10*3/uL (0.0-0.4); EOS % 0.0 % (1.0-4.0); MEAN CELL VOLUME 94.9 fl (80.0-94.0); MEAN CORPUSCULAR HGB 27.0 pg (27.0-31.0); MEAN PLATELET VOLUME 9.1 fl (9.6-12.3); MONO # 0.6 10*3/uL (0.1-1.0); MONO % 4.7 % (3.0-9.0); NEUT # 12.1 10*3/uL (2.3-7.9); NEUT % 89.4 % (47.0-73.0); NUCLEATED RED BLOOD CELL 0.0 % (0.0-0.0); NUCLEATED RED BLOOD CELL 0.0 10*3/uL (0.0-0.0); PLATELET COUNT AUTOMATED 172 10*3/uL (130-400); RED CELL DISTRI WIDTH 15.1 % (0-14.5)
[2025-05-16 07:27] LABS: BUN 18 mg/dl (9-23)
[2025-05-16 09:11] LABS: VENOUS BLOOD GAS O2 SAT 93.7 % (60.0-85.0)
[2025-05-16] MEDS ORDERED: Albuterol Sulf/Ipratropium 3 ML VIAL NEB SCH (09:35)
[2025-05-16] MEDS ORDERED: BUDESONIDE 0.5 MG AMP NEB SCH (10:45)
[2025-05-16 12:00] VITALS: BP 130/78; BP 97/58
[2025-05-16] MEDS ORDERED: FUROSEMIDE 40 MG TAB PO SCH ×2 (12:03→18:00)
[2025-05-16] MEDS ORDERED: FUROSEMIDE 40 MG/4 ML VIAL IV ONE ×2 (12:55→15:45)
[2025-05-16] MEDS ORDERED: GABAPENTIN 800 MG TAB PO SCH (14:00)
[2025-05-16] MEDS ORDERED: Fluticasone Propionate/Salmeterol 250/50 diskus INH SCH (18:00)
[2025-05-16] MEDS ORDERED: Pantoprazole Sodium 20 MG TAB PO SCH (18:00)
[2025-05-16 20:00] VITALS: BP 152/80
[2025-05-16] MEDS ORDERED: ATORVASTATIN CALCIUM 20 MG TAB PO SCH (22:00)
[2025-05-16] MEDS ORDERED: BUPRENORPHINE HCL/NALOXONE 8 MG-2 MG SL TABLET SL SCH (22:00)
[2025-05-16] MEDS ORDERED: GUAIFENESIN 600 MG TAB ER PO SCH (22:00)
[2025-05-17] VITALS: BP 142/89
[2025-05-17 06:19] LABS: BASO # 0.0 10*3/uL (0.0-0.1); BASO % 0.2 % (0.0-1.0); EOS # 0.0 10*3/uL (0.0-0.4); EOS % 0.0 % (1.0-4.0); MEAN CELL VOLUME 93.8 fl (80.0-94.0); MEAN CORPUSCULAR HGB 27.0 pg (27.0-31.0); MEAN PLATELET VOLUME 10.1 fl (9.6-12.3); MONO # 0.6 10*3/uL (0.1-1.0); MONO % 5.3 % (3.0-9.0); NEUT # 9.9 10*3/uL (2.3-7.9); NEUT % 86.6 % (47.0-73.0); NUCLEATED RED BLOOD CELL 0.0 % (0.0-0.0); NUCLEATED RED BLOOD CELL 0.0 10*3/uL (0.0-0.0); PLATELET COUNT AUTOMATED 181 10*3/uL (130-400); RED CELL DISTRI WIDTH 15.4 % (0-14.5)
[2025-05-17 06:32] LABS: BUN 19 mg/dl (9-23)
[2025-05-17 08:00] VITALS: BP 143/60
[2025-05-17] MEDS ORDERED: RIVAROXABAN 20 MG TAB PO SCH (10:00)
[2025-05-17] MEDS ORDERED: FUROSEMIDE 40 MG IV SCH (10:00)
[2025-05-17] MEDS ORDERED: FUROSEMIDE 40 MG/4 ML VIAL IV SCH (10:00)
[2025-05-17] MEDS ORDERED: Cholecalciferol 2,000 UNIT TABLET (50 MCG) PO SCH (10:00)
[2025-05-17] MEDS ORDERED: Rivastigmine Tartrate 9.5 MG/24 HR PATCH T SCH (10:00)
[2025-05-17] MEDS ORDERED: CITALOPRAM 20 MG TAB PO SCH (10:00)
[2025-05-17] MEDS ORDERED: ARIPiprazole 5 MG TAB PO SCH (10:00)
[2025-05-17 12:00] VITALS: BP 116/68
[2025-05-17] MEDS ORDERED: acetaZOLAMIDE 250 MG TAB PO SCH (12:21)
[2025-05-17 16:00] VITALS: BP 133/89
[2025-05-17 20:00] VITALS: BP 124/67
[2025-05-17 23:48] VITALS: BP 103/70
[2025-05-18 08:32] VITALS: BP 130/91
[2025-05-18 11:37] VITALS: BP 133/74
[2025-05-18 15:47] VITALS: BP 99/55
[2025-05-18 20:00] VITALS: BP 103/63
[2025-05-19 08:00] VITALS: BP 157/72
[2025-05-19 12:00] VITALS: BP 145/81
== END 2025-05-19 15:38 | disposition home or self-care (01) | DRG 291 ==
LOC: ED 06:48 → EDHOLD 07:59 → 5E 07:59
PROVIDERS: Emergency Medicine; Internal Medicine; ADMIT Internal Medicine; ATTEND Internal Medicine
PROC: 5A09357 Assistance with Respiratory Ventilation, Less than 24 Consecutive Hours, Continuous Positive Airway Pressure (ICD-10-PCS; principal; 2025-05-16)
DX: I11.0 Hypertensive heart disease with heart failure (principal); I50.21 Acute systolic (congestive) heart failure; J96.21 Acute and chronic respiratory failure with hypoxia; J96.22 Acute and chronic respiratory failure with hypercapnia; J44.1 Chronic obstructive pulmonary disease with (acute) exacerbation; J45.901 Unspecified asthma with (acute) exacerbation; I48.21 Permanent atrial fibrillation; J91.8 Pleural effusion in other conditions classified elsewhere; F03.93 Unspecified dementia, unspecified severity, with mood disturbance; D64.9 Anemia, unspecified; K21.9 Gastro-esophageal reflux disease without esophagitis; F32.9 Major depressive disorder, single episode, unspecified; I48.0 Paroxysmal atrial fibrillation; F41.1 Generalized anxiety disorder; F32.A Depression, unspecified; E78.5 Hyperlipidemia, unspecified; Z88.0 Allergy status to penicillin; Z79.899 Other long term (current) drug therapy; Z79.01 Long term (current) use of anticoagulants; Z79.2 Long term (current) use of antibiotics; Z95.0 Presence of cardiac pacemaker; Z87.891 Personal history of nicotine dependence; Z82.49 Family history of ischemic heart disease and other diseases of the circulatory system; Z83.3 Family history of diabetes mellitus; Z80.8 Family history of malignant neoplasm of other organs or systems; Z91.199 Patient's noncompliance with other medical treatment and regimen due to unspecified reason

== ENCOUNTER 2025-05-20 01:30 | Emergency (ER) | payer OTHER ==
[~2025-05-20] VITALS: Ht 177.8 cm; Wt 88.2 kg
[2025-05-20] MEDS ORDERED: EPINEPHrine Hydrochloride 1 MG/10 ML SYR IV ONE (10:50)
== END 2025-05-20 03:59 ==
LOC: ED 01:30
DX: I46.9 Cardiac arrest, cause unspecified (principal); F17.200 Nicotine dependence, unspecified, uncomplicated; Z88.0 Allergy status to penicillin; Z79.899 Other long term (current) drug therapy; Z98.890 Other specified postprocedural states; Z95.0 Presence of cardiac pacemaker